=== PATIENT | male | born 1945 | race Native Hawaiian/Other Pacific Islander ===

== ENCOUNTER 2019-07-27 13:53 | Inpatient (IN) | payer OTHER ==
[~2019-07-27] VITALS: Ht 180.3 cm; Wt 96.4 kg
[~2019-07-27 13:53] MED LIST: ACTOS45 MG PO; AMLO5TAB PO; BENA20TA2 PO; GLIM4TAB PO; METFORMIN ER1000 MG PO; PROZAC10 MG PO; RANI150T78 PO; ROSU10TA PO; TGT ENTERIC-CO325 MG OR
[2019-07-27 14:01] VITALS: BP 142/69; TEMP 97.7
[2019-07-27 14:44] LABS: PLATELET COUNT 148 K/uL (142-355)
[2019-07-27 20:00] VITALS: BP 153/61; TEMP 97.9
[2019-07-27 20:18] VITALS: BP 164/65; TEMP 97.6; Ht 180.3 cm; Wt 96.4 kg
[2019-07-28] VITALS: BP 130/62; TEMP 99.2
[2019-07-28 04:00] VITALS: BP 129/55; TEMP 98.3
[2019-07-28 08:00] VITALS: BP 128/52; TEMP 98.1
[2019-07-28 12:00] VITALS: BP 135/50; TEMP 99
[2019-07-28 16:00] VITALS: BP 142/52; TEMP 98.3
[2019-07-28] MEDS ORDERED: ACTOS45 MG PO (18:31)
[2019-07-28] MEDS ORDERED: GLIM4TAB PO (18:32)
[2019-07-28] MEDS ORDERED: LIPITOR20 MG PO (18:32)
[2019-07-28] MEDS ORDERED: COZAAR100 MG PO (18:33)
[2019-07-28] MEDS ORDERED: TEMA30CA18 PO (18:33)
[2019-07-28 20:00] VITALS: BP 95/53; TEMP 98.9
[2019-07-29] VITALS (7 sets, daily range): BP systolic 123–135; BP diastolic 47–54; TEMP 97.6–99.2
[2019-07-30 04:00] VITALS: BP 132/53; TEMP 98.9
[2019-07-30 08:00] VITALS: BP 135/56; TEMP 97.8
[2019-07-30 12:00] VITALS: BP 130/60; TEMP 97.2
[2019-07-30 16:00] VITALS: BP 133/55; TEMP 97.5
[2019-07-30 20:00] VITALS: BP 138/66; TEMP 97.7
[2019-07-31] VITALS: BP 139/54; TEMP 98.6
[2019-07-31 04:00] VITALS: BP 134/53; TEMP 97.9
[2019-07-31 08:00] VITALS: BP 150/58; TEMP 97.6
[2019-07-31 12:00] VITALS: BP 139/56; TEMP 98.1
[2019-07-31 16:00] VITALS: BP 142/55; TEMP 97.6
[2019-07-31 20:00] VITALS: BP 116/59; TEMP 97.7
[2019-08-01 00:23] VITALS: BP 138/56; TEMP 98.1
[2019-08-01 04:00] VITALS: BP 133/51; TEMP 98.1
[2019-08-01 08:00] VITALS: BP 139/61; TEMP 98
[2019-08-01 12:00] VITALS: BP 137/62; TEMP 97.6
[2019-08-01 16:00] VITALS: BP 139/56; TEMP 98.5
[2019-08-01 20:00] VITALS: BP 142/67; TEMP 98.1
[2019-08-02] VITALS: BP 130/43; TEMP 98.4
[2019-08-02 04:00] VITALS: BP 138/49; TEMP 98
[2019-08-02 08:00] VITALS: BP 144/54; TEMP 97.8
[2019-08-02 12:00] VITALS: BP 125/54; TEMP 98
[2019-08-02 16:00] VITALS: BP 142/60; TEMP 97.7
[2019-08-02 20:00] VITALS: BP 150/56; TEMP 98.1
[2019-08-03] VITALS (7 sets, daily range): BP systolic 130–165; BP diastolic 51–96; TEMP 97.2–98.3
[2019-08-04 04:00] VITALS: BP 139/59; TEMP 97.8
[2019-08-04 12:00] VITALS: BP 142/60; TEMP 97.9
[2019-08-04 16:00] VITALS: BP 151/56; TEMP 99
[2019-08-04 20:00] VITALS: BP 149/56; TEMP 98.5
[2019-08-05 00:26] VITALS: BP 152/56; TEMP 99
[2019-08-05 03:59] VITALS: BP 137/57; TEMP 98.4
[2019-08-05 08:00] VITALS: BP 157/62; TEMP 98.6
[2019-08-05 12:00] VITALS: BP 150/67; TEMP 97.5
[2019-08-05 16:00] VITALS: BP 151/57; TEMP 97.4
[2019-08-05 20:00] VITALS: BP 141/62; TEMP 98
[2019-08-06] VITALS: BP 147/54; TEMP 98.1
[2019-08-06 04:00] VITALS: BP 155/60; TEMP 98.4
[2019-08-06 08:00] VITALS: BP 141/50; TEMP 97.6
[2019-08-06 12:00] VITALS: BP 143/70; TEMP 97.4
== END 2019-08-06 16:20 | disposition short-term general hospital (02) | DRG 563 ==
LOC: ED 13:53 → MED/SURG 17:30 → ED 17:30 → MED/SURG 17:30 → EDBD 08-06 16:20 → MED/SURG 08-06 16:20
PROVIDERS: ADMIT Family Medicine
DX: S92.312A Displaced fracture of first metatarsal bone, left foot, initial encounter for closed fracture (principal); I69.351 Hemiplegia and hemiparesis following cerebral infarction affecting right dominant side; S92.322A Displaced fracture of second metatarsal bone, left foot, initial encounter for closed fracture; S92.332A Displaced fracture of third metatarsal bone, left foot, initial encounter for closed fracture; S92.342A Displaced fracture of fourth metatarsal bone, left foot, initial encounter for closed fracture; S92.344A Nondisplaced fracture of fourth metatarsal bone, right foot, initial encounter for closed fracture; S92.351A Displaced fracture of fifth metatarsal bone, right foot, initial encounter for closed fracture; E11.9 Type 2 diabetes mellitus without complications; I10 Essential (primary) hypertension; K21.9 Gastro-esophageal reflux disease without esophagitis; F32.9 Major depressive disorder, single episode, unspecified; W01.0XXA Fall on same level from slipping, tripping and stumbling without subsequent striking against object, initial encounter; Y92.091 Bathroom in other non-institutional residence as the place of occurrence of the external cause
CPT/HCPCS: 36415; 80053; 82948; 83036; 85027; 90715; 96372; 99284; J1650; J2405

== ENCOUNTER 2019-08-06 15:32 | Outpatient (CLI) | payer OTHER ==
[~2019-08-06 15:32] MED LIST changes: +COZAAR100 MG PO; +LIPITOR20 MG PO; +TEMA30CA18 PO
== END 2019-08-06 16:03 | disposition short-term general hospital (02) ==
LOC: AMB 15:32 → EDBD 15:32 → AMB 16:03
DX: S82.62XA Displaced fracture of lateral malleolus of left fibula, initial encounter for closed fracture (principal)
CPT/HCPCS: A0425; A0429

== ENCOUNTER 2019-08-21 13:30 | Inpatient (IN) | payer OTHER ==
[~2019-08-21] VITALS: Ht 175.3 cm; Wt 96.2 kg
[2019-08-21 15:15] VITALS: BP 155/75; TEMP 98.5; Ht 175.3 cm; Wt 96.2 kg
[2019-08-21 16:07] LABS: PLATELET COUNT 217 K/uL (142-355)
[2019-08-21 16:17] LABS: POTASSIUM 4.1 mmol/L (3.6-5.2)
[2019-08-21 20:00] VITALS: BP 123/59; TEMP 98.6
[2019-08-22 08:16] VITALS: BP 130/64; TEMP 98.5
[2019-08-22 20:00] VITALS: BP 134/57; TEMP 98.1
[2019-08-23 08:00] VITALS: BP 97/47; TEMP 97.9
[2019-08-23 20:00] VITALS: BP 105/53; TEMP 98.1
[2019-08-24 08:00] VITALS: BP 124/64; TEMP 98.6
[2019-08-24 20:00] VITALS: BP 131/56; TEMP 98.3
[2019-08-25 08:00] VITALS: BP 101/66; TEMP 98.2
[2019-08-25 20:00] VITALS: BP 132/53; TEMP 97.5
[2019-08-26 08:00] VITALS: BP 142/58; TEMP 98.6
[2019-08-26 20:00] VITALS: BP 121/45; TEMP 98.8
[2019-08-27 08:00] VITALS: BP 130/60; TEMP 98
[2019-08-27 20:00] VITALS: BP 129/59; TEMP 98
[2019-08-28 08:00] VITALS: BP 130/60; TEMP 97.5
[2019-08-28 20:00] VITALS: BP 116/57; TEMP 98.2
[2019-08-29 08:00] VITALS: BP 114/57; TEMP 98.3
[2019-08-29 20:00] VITALS: BP 117/53; TEMP 98.2
[2019-08-30 08:00] VITALS: BP 110/59; TEMP 97.8
[2019-08-30 20:00] VITALS: BP 123/48; TEMP 97.8
[2019-08-31 08:00] VITALS: BP 116/57; TEMP 97.7
[2019-08-31 20:00] VITALS: BP 134/60; TEMP 97.9
[2019-09-01 08:00] VITALS: BP 131/53; TEMP 97.6
[2019-09-01 19:49] VITALS: BP 126/50; TEMP 98.6
[2019-09-02 08:00] VITALS: BP 120/51; TEMP 99.3
[2019-09-02 17:27] VITALS: TEMP 98.8
[2019-09-02 20:26] VITALS: BP 135/49; TEMP 99
[2019-09-03 08:00] VITALS: BP 117/49; TEMP 98.7
[2019-09-03 13:29] LABS: PLATELET COUNT 156 K/uL (142-355)
[2019-09-03 13:42] LABS: POTASSIUM 4.4 mmol/L (3.6-5.2)
[2019-09-03 20:00] VITALS: BP 136/56; TEMP 98
[2019-09-04 06:13] LABS: PLATELET COUNT 150 K/uL (142-355)
[2019-09-04 06:44] LABS: POTASSIUM 4.2 mmol/L (3.6-5.2)
[2019-09-04 08:00] VITALS: BP 121/44; TEMP 98.5
[2019-09-04 20:00] VITALS: BP 116/50; TEMP 98.7
[2019-09-05 05:50] LABS: PLATELET COUNT 145 K/uL (142-355)
[2019-09-05 06:00] LABS: POTASSIUM 4.4 mmol/L (3.6-5.2)
[2019-09-05 08:05] VITALS: BP 115/46; TEMP 98.2
[2019-09-05 20:00] VITALS: BP 131/53; TEMP 98.4
[2019-09-06 08:00] VITALS: BP 125/50; TEMP 97.9
[2019-09-06 20:06] VITALS: BP 114/57; TEMP 98.3
[2019-09-07 08:00] VITALS: BP 115/47; TEMP 98.2
[2019-09-07 20:00] VITALS: BP 98/50; TEMP 97.9
[2019-09-08 08:00] VITALS: BP 120/48; TEMP 97.9
[2019-09-08 20:00] VITALS: BP 112/53; TEMP 98.7
[2019-09-09 08:20] VITALS: BP 115/52; TEMP 97.8
[2019-09-09 20:00] VITALS: BP 117/51; TEMP 97.9
[2019-09-10 08:00] VITALS: BP 130/57; TEMP 98.1
== END 2019-09-10 13:37 | disposition home or self-care (01) | DRG 948 ==
LOC: MED/SURG 13:30
PROVIDERS: Internal Medicine; ADMIT Internal Medicine
DX: R53.1 Weakness (principal); I69.351 Hemiplegia and hemiparesis following cerebral infarction affecting right dominant side; Z47.89 Encounter for other orthopedic aftercare; E11.9 Type 2 diabetes mellitus without complications; I10 Essential (primary) hypertension; K21.9 Gastro-esophageal reflux disease without esophagitis; E78.49 Other hyperlipidemia; F32.89 Other specified depressive episodes; R62.7 Adult failure to thrive; J20.9 Acute bronchitis, unspecified; S91.301A Unspecified open wound, right foot, initial encounter; X58.XXXA Exposure to other specified factors, initial encounter; Y92.230 Patient room in hospital as the place of occurrence of the external cause
CPT/HCPCS: 36415; 80053; 81000; 85027; 87077; 87081; 87086; 87088; 87186; 87502

== ENCOUNTER 2020-02-21 11:12 | Outpatient (CLI) | payer OTHER ==
[2020-02-21 11:40] LABS: PLATELET COUNT 136 K/uL (142-355)
[2020-02-21 12:03] LABS: POTASSIUM 3.8 mmol/L (3.6-5.2)
== END 2020-02-21 19:08 | disposition home or self-care (01) ==
LOC: LAB 11:12
PROVIDERS: Nurse Practitioner Family
DX: Z00.00 Encounter for general adult medical examination without abnormal findings (principal); E11.65 Type 2 diabetes mellitus with hyperglycemia; I10 Essential (primary) hypertension; G47.09 Other insomnia
CPT/HCPCS: 80053; 80061; 83036; 84439; 84443; 85027

== ENCOUNTER 2020-11-10 12:21 | Emergency (ER) | payer OTHER ==
[~2020-11-10] VITALS: Ht 180.3 cm; Wt 96.2 kg
[2020-11-10 12:21] VITALS: TEMP 98.3
[2020-11-10 13:30] LABS: POTASSIUM 3.3 mmol/L (3.6-5.2)
[2020-11-10 13:36] LABS: PLATELET COUNT 155 K/uL (142-355)
[2020-11-10 16:58] VITALS: BP 159/59
== END 2020-11-10 16:58 | disposition short-term general hospital (02) ==
LOC: ED 12:21
PROVIDERS: Emergency Medicine Emergency Medical Services
DX: E11.649 Type 2 diabetes mellitus with hypoglycemia without coma (principal); Z79.84 Long term (current) use of oral hypoglycemic drugs; R53.1 Weakness
CPT/HCPCS: 80053; 81000; 82550; 82948; 85027; 86140; 87077; 87086; 87088; 87186; 96365; 96375; 99284; J0696; J7060; Q9963

== ENCOUNTER 2020-12-04 14:20 | Outpatient (CLI) | payer OTHER ==
[2020-12-04 14:50] LABS: PLATELET COUNT 121 K/uL (142-355)
[2020-12-04 14:55] LABS: POTASSIUM 3.6 mmol/L (3.6-5.2)
== END 2020-12-04 19:36 | disposition home or self-care (01) ==
LOC: LAB 14:20
PROVIDERS: ATTEND Internal Medicine
DX: R30.0 Dysuria (principal); R42 Dizziness and giddiness; N39.0 Urinary tract infection, site not specified; E16.2 Hypoglycemia, unspecified
CPT/HCPCS: 80053; 81000; 85027

== ENCOUNTER 2020-12-17 13:31 | Inpatient (IN) | payer OTHER ==
[~2020-12-17] VITALS: Ht 180.3 cm; Wt 98.1 kg
--- NOTE | 2020-12-17 15:00 | NUR ---
PT NOTED TO HAVE EMOBILZER BRACE TO RT LOWER LEG FROM THIGH TO ANKLE, SURGICAL DRESSING NOTED TO LOWER THIGH DRY AND INTACT AT THIS TIME
[2020-12-17 17:12] VITALS: BP 144/60; TEMP 97.9; Ht 180.3 cm; Wt 98.1 kg
[2020-12-17 20:00] VITALS: BP 133/54; TEMP 98.2
--- NOTE | 2020-12-17 20:30 | NUR ---
ENTERED PATIENT'S ROOM. PATIENT RESTING QUIETLY IN BED WITH EYES CLOSED. LYING IN LOW BUENROSTRO'S WITH NECK BENT TOWARD LEFT SHOULDER. I ASKED PATIENT IF HE WAS UNCOMFORTABLE AND IF HE WOULD LIKE TO BE ADJUSTED. HE STATES THAT HE IS FINE. HE DENIES ANY PAIN AT THIS TIME, BUT HE DID AGREE TO TAKE SOMETHING FOR PAIN. WHILE GIVING MEDICATIONS, PATIENT STATES THAT HE USUALLY TAKES ALL OF HIS MEDICATIONS AT ONE TIME. PATIENT DID HAVE DIFFICULTY DOING THIS. HE WAS COUGHING AND IT WAS NOTED THAT HE STILL HAD PILLS IN HIS MOUTH AFTER STATING HE WAS FINISHED. I DISCUSSED WITH HIM THE IMPORTANCE OF SWALLOWING ALL PILLS D/T HIGH RISK OF CHOKING. HE DID AGREE TO SWALLOW THE REMAINING PILLS. HOB IN LOW BUENROSTRO'S POSITION. DENIES ANY OTHER CONCERNS OR COMPLAINTS. BED LOCKED AND IN LOWEST POSITION. CALL LIGHT WITHIN EASY REACH.
--- NOTE | 2020-12-18 01:30 | NUR ---
PATIENT TURNED IN BED AT THIS TIME. EXTENSIVE ASSIST X3 REQUIRED. PATIENT DID HAVE AN INCONTINENT EPISODE AND LINENS WERE ALSO CHANGED. PERCOCET GIVEN FOR PAIN ALSO. NC INTACT @ 2L/MIN. RESPIRATIONS EVEN AND UNLABORED. NAD NOTED. PATIENT STATES HE IS MORE COMFORTABLE NOW. PATIENT CONFUSED ABOUT SURROUNDINGS. REORIENTED PATIENT. BED LOCKED AND IN LOWEST POSITION. CALL LIGHT WITHIN EASY REACH.
--- NOTE | 2020-12-18 06:05 | NUR ---
PATIENT RESTING QUIETLY IN BED. RESPIRATIONS EVEN AND UNLABORED. NC INTACT @ 2L/MIN. NAD NOTED. BED LOCKED AND IN LOWEST POSITION. CALL LIGHT WITHIN REACH.
--- NOTE | 2020-12-18 06:22 | NUR ---
Patient is in the Swing Bed Program and is on a 2 Gm Na Diet plan and is 5'11" at 233.4 lbs. and BMI at 32.5 and is Class I Obesity and is 136% pf IBW; IBW = 172+/-10% (155 to 189 lbs.) and kcal needs for IBW x 25 = 2000, x 30 = 2300, x 35 = 2700, x 40 = 3100 kcal/day, protein needs x 1.3 to 1.5 = 102 to 117 grams per day and fluids for IBW x 25 to 40 = 2000 to 3100 ml/cc per day. Patient was admitted with Orthopedic Aftercare and is a &&YOM, Right Distal femur fracture, right sided hemiparesis, and has a history of DM, HTN, GERD, CVA, Depression, and has a right ankle fracture, Hyperlipidemia and is eating 75% of meals and gl elevated at 208. RD Recommendations: 1-Monitor Labs 2-PT to work with the patient 3-OT to work with the patinet 4-Suggest to add NCS HIGH FIBER and encourage patient to follow the diet and may want to add Low Fat Low Cholesterol d/t dx. and if the patient won't follow 5-A Dietary Refusal Form needs to be signed 6-Add Vitamin C 500 mg BID 7-Add ZNSO4 220 mg per day and d/c in 14 days 8-Add Protein 30 ml/cc or 1 scoop QID 9-[place] all food preferences and state on the diet card and offere substitutes at all meals.
[2020-12-18 08:00] VITALS: BP 97/55; TEMP 97.8
--- NOTE | 2020-12-18 08:45 | NUR ---
REPORTED TO DR. TALAVERA PT'S CONCERNS OF WHEN HE SWALLOWS FOODS OR LIQUIDS HE STATES IT SCHWAB IN HIS THROAT AND HE HAS TO COUGH OR BELCH IN ORDER FOR THE BURN TO GO AWAY, DR. TALAVERA STATES HE WILL GO SEE THE PT AND THAT IT IS OK FOR THE PT TO TAKE HIS AM MEDICATIONS, NO ORDERS GIVEN AT THIS TIME
--- NOTE | 2020-12-18 09:01 | NUR ---
DURING MORNING MED PASS PT WAS ADVISED TO SWALLOW ONE PILL AT A TIME TO PREVENT CHOKING. PT STATED "WHY CHANGE A 25 YEAR HABIT" AND SWALLOWED ALL THE PILLS AT ONCE. CABLE SPLICING TECHNICIAN REINFORCED EDUCATION THAT SWALLOWING ALL THE PILLS AT ONCE IS NOT ADVISED DUE TO CHOKING HAZARD.
[2020-12-18 19:52] VITALS: BP 140/53; TEMP 98
[2020-12-19 08:00] VITALS: BP 145/56; TEMP 98.5
--- NOTE | 2020-12-19 09:03 | NUR ---
12/19/20 0815 RESTING IN BED EYES CLOSED RESP EVEN NONLABORED NAD NOTED.CC
--- NOTE | 2020-12-19 10:00 | NUR ---
PATIENT REFUSED THERAPY. PATIENT STATED TO PARVEZ WHITE THAT HE HAS A COLD AND DOES NOT WANT TO GET UP.
--- NOTE | 2020-12-19 10:30 | NUR ---
DR. TALAVERA NOTIFIED OF PATIENT REFUSAL OF THERAPY AND REQUEST FOR COLD MEDICATION.
--- NOTE | 2020-12-19 10:52 | NUR ---
PATIENT NOTIFIED PARVEZ WHITE THAT HE HAS NOT HAD A BOWEL MOVEMENT SINCE TUESDAY (1 WEEK AGO). HE REQUESTED SOME OTHER MEDICATION FOR THIS. DR. TALAVERA TO BE NOTIFIED.
--- NOTE | 2020-12-19 11:15 | NUR ---
INTERDISCIPLINARY SWING BED MEETING. DISCUSSED PT FEELING LIKE HE HAS A COLD AND NOT HAVING A BOWEL MOVEMENT IN ONE WEEK. DR. TALAVERA ASSESSED PATIENT. NEW ORDERS TO COME. THERAPY TO RETURN TO WORK WITH PATIENT.
--- NOTE | 2020-12-19 15:30 | NUR ---
PATIENT RECEIVED A BATH FROM [facility]. PATIENT TOLERATED WELL. PATIENT STATED HE ONLY HAD MINIMAL DISCOMFORT WITH TURNING.
--- NOTE | 2020-12-19 18:33 | NUR ---
SPOKE WITH DR. TALAVERA ABOUT PATIENT'S INDIGESTION. DR. TALAVERA GAVE VERBAL ORDER FOR MAALOX Q6H PRN FOR INDIGESTION. ORDER RBV.
[2020-12-19 19:52] VITALS: BP 148/52; TEMP 99.5
--- NOTE | 2020-12-19 22:56 | NUR ---
PATIENT HAS BE READJUSTED IN THE BED THE PATIENT IS ABLE TO ROLL TO HIS RIGHT SIDE WITH MINIMAL ASSISTANCE BUT EXTENSIVE TO HIS LEFT. THE PATIENT IS A TWO PERSON EXTENSIVE ASSIST TO PULL UP IN THE BED. PATIENT IS SET UP ONLY OFR MEDICATIONS ADMINSISTRATION AND EATING.
--- NOTE | 2020-12-20 00:43 | NUR ---
PATIENT HAS A SMALL RED BLANCHABLE ON HIS SPOT ON HIS RT BUTTOCK. THE PATIENT STATES, " THATS BEEN THERE [facility]." IT WAS BLANCHABLE AND NON PAINFUL. THE PATIENTS BILATERAL FEET AND ANKLES HAVE 3+ PITTINGEDEMA. THE FOOT OF THE BED WAS RAISED. THE RIGHT FOOT IS SLIGHTLY MORE EDEMIOUS. BILATERAL PETAL PULSES INTACT
--- NOTE | 2020-12-20 08:11 | NUR ---
IDT meeting today and per patient is not eating d/t no appetite and has a sore throast and ST/Janice is going to evaluet and help as needed. Stated he doesn't feel good. Ms. Felipe led the meeting. RD Recommendations: 1-Make sure on a MVI 2-Appetite Stimulant 3-GIve a supplement with or between meals and at HS as will take until eating 75% of meals and then can d/c
--- NOTE | 2020-12-20 19:40 | NUR ---
PT SITTING UP IN BED WITH SIDE RAILS UP TIMES THREE WITH BED IN LOWEST POSITION. NAD NOTED.
[2020-12-20 20:06] VITALS: BP 138/52; TEMP 99.3
--- NOTE | 2020-12-21 05:50 | NUR ---
STOOL NOTED AT END OF RECTUM. PT COMPLAINED OF PAIN. DIGITALLY IMPACTED PT AT THIS TIME. NOTED HARD LARGE BALL LIKE STOOL. PT FELT IMMEDIATE RELIEF AFTER INTERVENTION.
[2020-12-21 08:00] VITALS: BP 147/56; TEMP 98.2
--- NOTE | 2020-12-21 08:40 | NUR ---
PATIENT RESTING IN BED WITH 2 SIDE RAILS UP. PATIENT HAS SOME INDIGESTION AT THIS TIME. PATIENT DOES NOT WANT PRN MAALOX.
--- NOTE | 2020-12-21 18:07 | NUR ---
PATIENT CALLED NURSES STATIONS AND ASKED TO SEE HIS NURSE. FILLING STATION LABORER ENTERED ROOM AND PATIENT APPEARED TO BE SLEEPING. WHEN PATIENT NAME WAS CALLED HE AROUSED AND STARTED SAYING HIS CHEST WAS ON FIRE. PRN MAALOX GIVEN PER MD ORDERS. PATIENT REQUESTED PAIN MEDICATION FOR LEG. PROVIDED PRN PERCOCET PER MD ORDERS. PATIENT DRIFTED OFF TO SLEEP BEFORE FILLING STATION LABORER LEFT THE ROOM. WILL CONTINUE TO MONITOR.
--- NOTE | 2020-12-21 19:30 | NUR ---
PT'S BLOOD SUGAR LEVEL OF 50MG/DL. ORANGE JUICE GIVEN TO PT AT THIS TIME.
[2020-12-21 19:50] VITALS: BP 132/54; TEMP 98.8
--- NOTE | 2020-12-21 20:57 | NUR ---
PM MEDS GIVEN AT THIS TIME. PT TOLERATED WELL. PT IN A HIGH-FOWLERS POSITION WITH SIDE RAILS UP TIMES TWO WITH BRACE IMMOBILIZER ON LOWER RIGHT EXTERMITY. NO NAD NOTED AT THIS TIME.
--- NOTE | 2020-12-22 07:15 | NUR ---
NEFTALY PCT REPORTS PT'S BLOOD SUGAR VIA FINGER STICK TO BE 29. NEFTALY PCT REPORTS PT IS ALERT AND TALKING. 2 ORANGE JUICES GIVEN WILL RECHECK BS IN 1 HOUR. WILL CON'T TO MONITOR PT.
--- NOTE | 2020-12-22 07:35 | NUR ---
REC'D REPORT FROM KIERAN AGUERO LPN. IN TO CHECK ON PT. PT NOTED TO BE LAYING IN BED IN HIGH FOWLERS WITH COVERS PULLED UP TO HIS HEAD. PT NOTED TO BE LETHARGIC, PT VERBALIZES "I JUST DON'T FEEL GOOD" PT INFORMED HIS BLOOD SUGAR IS LOW AND THAT COULD BE THE REASON HE ISN'T FEELING WELL. PT DENIES ANY NAUSE.
[2020-12-22 08:00] VITALS: BP 152/52; TEMP 97.6
--- NOTE | 2020-12-22 08:00 | NUR ---
PT BS NOTED TO BE 75 VIA FINGER STICK AT THIS TIME. DR. TALAVERA NOTIFIED. REC'D ORDERS TO D/C PT'S AMARYL AND ACTOS AT THIS TIME. NEFTALY PCT REPORTS PT IS CURRENTLY REFUSING BREAKFAST AT THIS TIME. PT GIVEN CHOCOLATE ENSURE AND REMINDED THAT HIS BLOOD SUGAR IS LOW AND HE NEEDS TO EAT OR AT LEAST DRINK AN ENSURE TO HELP BRING HIS BS BACK UP. PT CONSUMED ONE WHOLE CAN 240 ML CHOCOLATE ENSURE WITH ENCOURAGEMENT. WILL CON'T TO MONITORO PT.
--- NOTE | 2020-12-22 08:45 | NUR ---
PT AM ASSESSMENT COMPLETED AT THIS TIME. PT NOTED TO BE ALERT AND ORIENTED X3. PT STATES "WHAT IS TODAY" PT REORIENTED AND INFORMED TODAY IS TUESDAY DECEMBER 22, 2020. PT HR REGULAR ON AUSCULTATION, BILAT LUNG SOUNDS CLEAR THROUGH OUT. 3+ PITTING NOTED TO RLE. TRACE AMOUNT OF SWELLING NOTED TO LLE. PEDAL PULSES FELT BILAT EQUAL. CAP REFILL <3 SECONDS. RADIAL PULSES EQUAL BILAT. PT NOTED TO HAVE WEKANESS TO LEFT UPPER EXTREMITY D/T PREVIOUS HX OF CVA. ABD SOUNDS PRESENT X4 QUADRANTS. WILL CON'T TO MONITOR PT.
--- NOTE | 2020-12-22 09:04 | NUR ---
PT NOTED TO BE ALERT AND ORIENTED AT THIS TIME. PO MEDS GIVEN.PT TOLERATED WELL WITHOUT DIFFICULTY. PT STATES "I JUST WANT TO GO HOME" PT REMINDED THAT HE IS HERE FOR THERAPY AND FOR US TO HELP HIM GET BACK HOME. PT STAT ES "I KNOW"
--- NOTE | 2020-12-22 11:27 | NUR ---
PT AT BEDSIDE. PT'S BS NOTED TO BE 126 VIA FINGER STICK. PT REPORTS THAT HE WAS CONFUSED THIS MORNING AND WHEN HE WOKE UP HE DIDN'T KNOW WHERE HE WAS AT. PT GIVEN NEW URINAL. VERIFIED WITH PT IF THERAPY WAS GETTING HIM UP. PT STATES "ON THE SIDE OF THE BED, BECAUSE THAT LEG JUST HURTS" PT'S ASKS "IS THERE ANY WAY THEY CAN X-RAY HIM AND TELL WHY HE IS HAVING THAT CHEST PAIN" ASKED PT IS HE WAS HAVING CHEST PAIN, PT STATES "YEAH, IT SCHWAB HERE, POINTING TO MID STERNUM, AND I FEEL LIKE MY FOOD IS JUST SITTING THERE THAT IS WHY I CAN'T EAT" EDUCATED PT THAT HE NEEDS TO BE SITTING UP RIGHT WHETHER IT BE IN THE BED OR IN A CHAIR OR ON THE SIDE OF THE BED, BUT THAT HE NEEDS TO BE IN AN UPRIGHT POSITION SO THAT HIS FOOD CAN GO DOWN EASILY. PT VERBALIZED UNDERSTANDING. NOTIFIED DR. TALAVERA WHO VERIFIES THE MAGIC MOUTH WASH AND MAALOX IS FOR THE BURNING IN THE CHEST, AND THAT YES HE DOES NEED TO BE SITTING UP RIGHT. WILL CON'T TO MONITOR PT.
--- NOTE | 2020-12-22 12:02 | NUR ---
PT ASSISSTED TO BEDSIDE VIA LIDIA BUTLER AND JIM GOLD MAX ASSISTANCE. PT TOLERATED WELL WITH MINIMAL DIFFICULTY. PT GIVEN PERCOCET 5/325 PO PER MD ORDERS FOR PREVENITIVE PAIN. PT REPORTS FEELING DIZZY AFTER SITTING UP. PT VERBALIZED SOME DIFFICULTY WITH SWALLOWING PAIN PILL. NO DISTRESS NOTED. PT NOTED TO HAVE LARGE SOFT BOWEL MOVEMENT AT THIS TIME, PT CLEANED AND CHANGED X3 PERSON ASSIST.
[2020-12-22 20:00] VITALS: BP 157/56; TEMP 98.5
--- NOTE | 2020-12-22 20:00 | NUR ---
PATIENT RESTING QUIETLY IN BED. NC INTACT @ 2L/MIN. RESPIRATIONS EVEN AND UNLABORED. NAD NOTED. PATIENT DOES REPORT PAIN TO RLE. IMMOBILIZER BRACE AND AQUACEL INTACT. PATIENT MOVED UP IN THE BED WITH ASSIST X 3. PATIENT REQUESTING THAT PILLOWS BE REMOVED FROM UNDERNEATH RLE. PRN PAIN MEDICATION GIVEN WITH PM MEDS. BED LOCKED AND IN LOWEST POSITION. CALL LIGHT WITHIN EASY REACH.
--- NOTE | 2020-12-22 23:00 | NUR ---
PATIENT RESTING QUIETLY IN BED WITH EYES CLOSED. RESPIRATIONS EVEN AND UNLABORED. NAD NOTED. CALL LIGHT WITHIN REACH.
[2020-12-23 08:00] VITALS: BP 151/56; TEMP 97.6
--- NOTE | 2020-12-23 11:26 | NUR ---
PT ASSISTED BACK TO BED VIA GAIT BELT AND 2 PERSON EXTENSIVE ASSIST. PER [address] NATHALIE PT DID ASSIST WITH PLACING WEIGHT ON HIS LEFT LEG FOR SUPPORT. PT TOLERATED WELL WITHOUT DIFFICULTY. PT ASSISTED WITH LAYING DOWN IN BED X1 PERSON ASSIST WITH LIFTING HIS LEGS UP ON THE BED. PT THEN PULLED UP IN BED X2-3 PERSON ASSIST. PT TOLERATED WELL WITHOUT DIFFICULTY. PT REFUSES TO HAVE PILLOW PLACED UNDER HIS LEGS TO FLOAT HEELS. WILL CON'T TO MONITOR PT. CALL LIGHT WITHIN REACH. BED LOW AND LOCK. PT AT BEDSIDE.
[2020-12-23 20:00] VITALS: BP 134/53; TEMP 98
--- NOTE | 2020-12-23 21:10 | NUR ---
UPON ENTERING PATIENTS ROOM, PATIENT WAS IN SEMI FOWLERS POSITION WATCHING TV. PATIENT IS A&O X4, AND IS PLEASANT, CHEERFUL AND CONVERSING WITH STAFF. PATIETN REORIENTED TO ROOM. PATIENT C/O OF PAIN TO RLE, IMMOBILIZER AND AQUACEL NOTED TO BE INTACT. PROVIDED PAIN MEDICATION PER PHYSICIAN ORDERS. REDDENED AREA NOTED TO RIGHT INNER THIGH WHERE IMMOBILIZER BEGINS WITH NO BREAKDOWN TO SKIN NOTED AT THIS TIME, TELFA PAD APPLIED TO AREA AND SECURED WITH MICROPORE TAPE. PATIENT TOLERATED WELL. PROVIDED PATIENT WITH PM MEDICATIONS, PT TOOK ALL MEDICATIONS WHOLE WITHOUT DIFFICULTY. PATIENT'S BEDSIDE TABLE WITH BELONGINGS AND CALL LIGHT WITHIN REACH. PATIENT INSTRUCTED TO CALL FOR ANY ASSISTANCE OR NEEDS, PT V/O UNDERSTANDING. NO S/SX OF DISTRESS NOTED AT THIS TIME. PATIENT STATES PAIN TO RLE IS A 6/10 NUMERIC PAIN SCALE. WILL MONITOR FOR THERAPEUTIC TREATMENT.
--- NOTE | 2020-12-23 23:25 | NUR ---
PATIENT REPORTS HE HAD A BOWEL MOVEMENT. PATIENT WAS ABLE TO ROLL ONTO HIS RIGHT SIDE WITH MODERATE ASSISTANCE TONIGHT BY STAFF MEMBER PATIENT HELD ONTO RIGHT BEDSIDE RAIL. PATIENT CLEANED OF MODERATE AMOUNT OF FORMED DARK STOOL NOTED IN DEPENDS, CALAZIME CREAM APPLIED TO SACRUM, CLEAN DEPENDS PLACED ON PATIENT AND CLEAN CHUX X2 PLACED BENEATH PATIENT. PATIENT ABLE TO TURN ONTO LEFT SIDE WITH MAX ASSISTANCE BY STAFF. PATIENT REPOSITIONED UP IN BED WITH TWO PERSON ASSIST. PATIENT DENIES ANY PAIN, NEEDS OR C/O AT THIS TIME. BEDSIDE TABLE WITH PERSONAL BELONGINGS WITHIN REACH. CALL LIGHT WITHIN REACH, PT INSTRUCTED TO CALL FOR ANY ASSISTANCE OR NEEDS. PT V/O UNDERSTANDING. NAD NOTED AT THIS TIME.
--- NOTE | 2020-12-24 11:00 | NUR ---
PT AT BEDSIDE.
--- NOTE | 2020-12-24 12:00 | NUR ---
PT AT BEDSIDE. PATIENT TRANSFERRED BACK TO BED.
[2020-12-24 19:44] VITALS: BP 140/52; TEMP 98.7
--- NOTE | 2020-12-24 22:29 | NUR ---
MELANIE IS MORE ALERT AND IS ABLE TO REMEBER WRITERS NAME. PATIENT IS ABLE TO USE URINAL AND MOVE IN BED WITH LIMMITED ASSISTANCE. PATIENT IS ABLE TO ADMINISTER MEDICATIONS AND EAT WITH SETUP HELP ONLY
--- NOTE | 2020-12-24 22:53 | NUR ---
PATIENT IS A SET ONLY ASSIST WHEN HE USES THE URINAL BUT A 2PERSON PHYSICAL EXTENSIVE ASSIST WHEN HE HAS A BM
--- NOTE | 2020-12-25 04:05 | NUR ---
PATIENT IS RESTING QUIETLY. BREATHS ARE EASY NON LABORED. SIDERALES UP X2.
--- NOTE | 2020-12-25 05:04 | NUR ---
LATE ENTRY: AT 2100 PATIENT STATED, "PT WORKED ME GOOD." AND REQUESTED A PAIN PILL. PATIENT WAS MEDICATED AND LATER REPORTED RELIEF AND DENIED ANY PAIN
--- NOTE | 2020-12-25 05:06 | NUR ---
PATIENT IS A SSET UP ONLY SELDF WHEN USING A UR BUT WHEN CHANGINF THE PATIENT OF A BM THE PATIENT IS A 2 PERSONEXTENSIVE ASSIST
[2020-12-25 08:00] VITALS: BP 132/52; TEMP 98.3
--- NOTE | 2020-12-25 12:15 | NUR ---
PATIENT'S IN THERAPY CHAIR AND DENIES ANY PAIN, NEEDS OR C/O AT THIS TIME. IS AT BEDSIDE. CALL LIGHT AND BEDSIDE TABLE WITH PERSONAL BELONGINGS WITHIN REACH. NO S/SX OF DISTRESS NOTED.
[2020-12-25 20:00] VITALS: BP 145/56; TEMP 98.6
--- NOTE | 2020-12-25 20:15 | NUR ---
PT IS ABLE TO USE URINAL AND MOVE AROUND IN THE BED WITH SET UP LIMITED ASSISTANCE ONLY. PT. IS MORE RESPONIVE AND REACTIVE TO VERBAL STIMULI. PT PUT OUT 320 ML OF URINE IN THE URINAL.
[2020-12-26 08:00] VITALS: BP 153/57; TEMP 98.9
--- NOTE | 2020-12-26 09:15 | NUR ---
AM MEDICATIONS ADMINISTERED TO PATIENT WHOLE WITHOUT DIFFICULTY. PATIENT IN SEMI FOWLERS POSITION. PT REPORTED HE SLEPT WELL DURING THE NIGHT. PATIENT HAS NO C/O OR REQUEST AT THIS TIME. PATIENT ENCOURAGED TO CALL FOR ANY ASSISTANCE OR NEEDS, PT V/O UNDERSTANDING. CALL LIGHT AND BEDSIDE TABLE WITH PERSONAL BELONGINGS WITHIN REACH. PATIENT CONTINUES TO RECEIVE OXYGEN VIA NC @ 2LPM. PATIENT IS ABLE TO USE THE URINAL AT BEDSIDE WITHOUT ASSISTANCE FROM STAFF BUT REQUIRES MAXIMUM ASSISTANCE FROM STAFF FOR BOWEL MOVEMENTS. PATIENT DENIES ANY PAIN, NEEDS OR C/O.
--- NOTE | 2020-12-26 09:35 | NUR ---
PATIENT HAD A BOWEL MOVEMENT. STAFF CLEANED AND CHANGED PATIENT'S DEPEND, BED LINENS AND CHUX. PATIENT WAS A MAX ASSIST X3 STAFF MEMBERS.
--- NOTE | 2020-12-26 10:00 | NUR ---
PATIENT C/O OF PAIN TO RLE, ADMINISTERED PERCOCET X1 TAB PER PHYSICIAN ORDERS. PATIENT V/O PAIN IS A 5/10 ON NUMERIC PAIN SCALE. PATIENT DENIES ANY OTHER NEEDS OR C/O AT THIS TIME.
--- NOTE | 2020-12-26 10:55 | NUR ---
PATIENT RESTING QUIETLY IN BED WITH EYES CLOSED, NO S/SX OF DISTRESS NOTED WITH PATIENT AT THIS TIME. IS AT BEDSIDE AND INSTRUCTED HER TO NOTIFY STAFF OF ANY NEEDS, V/O UNDERSTANDING.
--- NOTE | 2020-12-26 13:55 | NUR ---
PATIENT SITTING UP ON SIDE OF BED WITH THERAPY AT BEDSIDE. NAD NOTED WITH PATIENT AT THIS TIME.
--- NOTE | 2020-12-26 15:20 | NUR ---
PATIENT RESTING QUIETLY IN BED WITH EYES CLOSED IN SEMI FOWLERS POSITION. NAD NOTED WITH PATIENT AT THIS TIME.
--- NOTE | 2020-12-26 16:34 | NUR ---
During weekly IDT meeting with resident and his today, patient verbalized that he would not go all the way to [place], [place] for orthopedic surgery follow-up as scheduled with Dr. Fournier 12/31/20 at 1 PM. Called [facility] at to ask if there is a closer alternative that is closer for patient. Advised that there is a possibility that he can be seen by either Dr. Ervin or Dr. Deutsch in [place] as Dr. Fournier was providing coverage for their orthopedic office when Mr. Pratt required surgery. Their office is already closed today (Tuesday), but the phone number to call for appointment is . Did not cancel the appointment with Dr. Fournier yet in case Mr. Pratt changed his mind if this alternative was unsuccessful. to call for appointment is .
--- NOTE | 2020-12-26 19:40 | NUR ---
AWAKE LAYING IN BED WITH HOB ELEVATED, DENIES ANY PAIN OR PROBLEMS AT THIS TIME, PT TALKING WITH INCIDENT ANALYST SOME, RESP RATE NONLABORED, DRESSING INTACT TO R LEG. OPENED SUGAR FREE COOKIE PACKAGE PER PT'S REQUEST SO HE CAN EAT A SNACK. PLACED COOKIE ON [place] ON BEDSIDE TABLE SET UP HELP ONLY AND PT ATE COOKIE, WILL MONITOR, RAILS UP X3, BED IN LOW POSITION, CALL LIGHT IN REACH, ENCOURAGED TO CALL NEEDED, PT ACKNOWLEDGES UNDERSTANDING.
[2020-12-26 20:00] VITALS: BP 136/56; TEMP 98.7
--- NOTE | 2020-12-26 22:00 | NUR ---
PT AWAKE WITH NO ACUTE DISTRESS NOTED SITTING UP IN BED, DENIES ANY NEEDS, GAVE NIGHTLY MEDICATION BY MOUTH WITH NO PROBLEMS NOTED. ALSO NOTE GAVE PERCOCET 5/325MG PO PRN TO KEEP PT FROM HAVING PAIN WHILE HE SLEEPS PT STATES HE WILL START HURTING BAD AROUND 2300 SO PRN MED GIVEN TO PREVENT PAIN TO R UPPER LEG. PT HELD MEDICATION CUP AND HIS DRINK PER SELF AND TOOK MEDICATIONS. WILL MONITOR CLOSELY, URINAL WITHIN PT'S REACH, CALL LIGHT IN REACH, BED IN LOW POSITION, RAILS UP X3, ENCOURAGED TO CALL NEEDED, PT ACKNOWLEDGES UNDERSTANDING.
--- NOTE | 2020-12-26 23:29 | NUR ---
PT RESTING IN BED WITH EYES CLOSED, NO S/S OF PAIN OR DISTRESS NOTED, RESP RATE NONLABORED, CALL LIGHT IN REACH, WILL MONITOR CLOSELY, RAILS UP X3, BED IN LOW POSITION.
--- NOTE | 2020-12-27 01:30 | NUR ---
CONTINUES TO REST WITH EYES CLOSED, NO S/S OF PAIN OR DISTRESS NOTED, WILL MONITOR, RAILS UP X3, BED IN LOW POSITION, CALL LIGHT IN REACH.
--- NOTE | 2020-12-27 05:05 | NUR ---
RESTING IN BED WITH EYES CLOSED, NO S/S OF PAIN OR DISTRESS NOTED, WILL MONITOR, RAILS UP, BED IN LOW POSITION, CALL LIGHT IN REACH.
--- NOTE | 2020-12-27 08:13 | NUR ---
IN TO ADMINISTER AM MEDS. PT IN LF POSITION. NAD NOTED. PT HAS NO COMPLAINTS OR REQUESTS AT THIS TIME. BED LOW AND LOCKED. CALL LIGHT WITHIN REACH.
--- NOTE | 2020-12-27 09:03 | NUR ---
Pleased with meals and eating better and wants him to stay longer because she can't help him at home. He seemed very upset with her that she can't help him.
--- NOTE | 2020-12-27 10:36 | NUR ---
PCT WALKED IN ON PT WITH LEFT ARM HANGING OFF OF BED. WHILE TRYING TO MOVE PT UP IN BED, IT WAS NOTICED THAT PT HAD A BM. MYSELF, PCT ARIES, AND SHIRLEY HANNON CLEANED PT UP AND CHANGED BEDDING. PT TOLERATED WELL. BED LOW AND LOCKED. SIDE RAILS UP X3. CALL LIGHT IN REACH.
--- NOTE | 2020-12-27 15:45 | NUR ---
PT C/O PAIN AT 7 ON 0-10 PAIN SCALED. REQUESTING PAIN MEDS. SEE MAR.
[2020-12-27 20:00] VITALS: BP 131/53; TEMP 98.4
--- NOTE | 2020-12-27 21:30 | NUR ---
PT FOUND AWAKE AND ORIENTED LAYING IN BED WITH HOB ELEVATED, NO S/S OF ACUTE DISTRESS NOTED. PT TALKATIVE WITH REPLANTER TELLING REPLANTER ABOUT WORKING FOR EMS THEN POLICE OFFICE AND LEATHER SPRAYER. EXTERNAL FIXATOR INTACT TO R LEG WITH SOME SWELLING NOTED TO LOWER LEG. OFFERED TO PLACE PILLOW UNDER LEG AND PT STATES HE IS FINE. GAVE NIGHTLY MEDICATIONS ALONG WITH PERCOCET 5/325MG PO PRN FOR C/O CONSTANT PAIN TO R LEG THAT IS A "6". PT HELD MEDICATION CUP AND HIS DRINK BY HIS SELF REPLANTER JUST BROUGHT MEDS IN CUP HANDED THEM TO PT AND ALSO BROUGHT PT'S DRINK OPENED IT THEN HANDED IT TO PT. PT ALSO HAS 2 SUGAR FREE COOKIES FOR A NIGHT TIME SNACK TO KEEP HIS BLOOD SUGAR FROM GETTING LOW BY MORNING AND ALSO PER PT REQUEST. WILL MONITOR CLOSELY, RAILS UP, BED IN LOW POSITION, CALL LIGHT AND URINAL WITHIN REACH, ENCOURAGED TO CALL NEEDED, PT ACKNOWLEDGES UNDERSTANDING.
--- NOTE | 2020-12-27 23:28 | NUR ---
RESTING IN BED WITH EYES CLOSED AND SNORING NOTED, NO S/S OF PAIN OR DISTRESS NOTED, RAILS UP, BED IN LOW POSITION, CALL LIGHT ANS URINAL WITHIN PT'S REACH.
--- NOTE | 2020-12-28 01:15 | NUR ---
RESTING IN POSITION OF COMFORT IN BED WITH EYES CLOSED AND LIGHT SNORING NOTED, NO S/S OF PAIN OR DISTRESS NOTED, RESP RATE NONLABORED, WILL MONITOR, RAILS UP, BED IN LOW POSITION, CALL LIGHT AND URINAL WITH IN PT'S REACH.
--- NOTE | 2020-12-28 05:47 | NUR ---
RESTING WITH EYES CLOSED, NO S/S OF PAIN OR DISTRESS NOTED.
[2020-12-28 08:00] VITALS: BP 131/53; TEMP 98.3
--- NOTE | 2020-12-28 08:36 | NUR ---
PT IN HF POSITION. NAD NOTED. PT STATES THAT HE IS NOT IN ANY PAIN AT THIS TIME. NO COMPLAINTS OR REQUESTS AT THIS TIME. BED LOW AND LOCKED. SIDE RAILS UP X3. CALL LIGHT WITHIN REACH.
--- NOTE | 2020-12-28 10:51 | NUR ---
PT RESTING WITH EYES CLOSED. NAD NOTED. BED LOW AND LOCKED. SIDE RAILS UP X3. CALL LIGHT WITHIN REACH.
--- NOTE | 2020-12-28 14:47 | NUR ---
CHANGED PT'S BRIEF AND BEDDING. PT C/O PAIN AT A 4 ON THE 0-10 PAIN SCALE. STATES THAT IT'S GOING UP. ADMINISTERED PRN PAIN MEDS, SEE MAR. BED LOW AND LOCKED. SIDE RAILS UP X3. CALL LIGHT WITHIN REACH.
--- NOTE | 2020-12-28 16:01 | NUR ---
IN TO ADMINSTER MEDS. PT TOLERATED WELL. NAD NOTED. PT HAS NO COMPLAINTS OR REQUESTS AT THIS TIME. BED LOW AND LOCKED. SIDE RAILS UP X3. CALL LIGHT WITHIN REACH
--- NOTE | 2020-12-28 17:50 | NUR ---
PT IN HF POSITION WITH TV ON. NAD NOTED. PT HAS NO COMPLAINTS OR REQUESTS AT THIS TIME. BED LOW AND LOCKED. SIDE RAILS UP X3. CALL LIGHT WITHIN REACH.
--- NOTE | 2020-12-28 19:55 | NUR ---
PT AWAKE, ALERT, AND ORIENTED SITTING UP IN BED WATCHING TV, NO S/S OF PAIN OR DISTRESS NOTED, RESP RATE NONLABORED, O2 AT 2LPM VIA NC, SKIN WARM AND DRY, RADIAL PULSES INTACT, NOTE SOME DEPENDANT EDEMA TO R HAND/ARM, FIXATOR INTACT TO R LEG WITH SOME 2+ PITTING EDEMA NOTED TO R FOOT(WHEN ASKED PT DOES NOT WANT LEG ELEVATED ON PILLOW) SKIN WARM AND NORMAL COLOR TO R FOOT, BS+, LUNGS SLIGHTLY DIMINISHED IN BASES. PT DENIES ANY PROBLEMS OR NEEDS AT THIS TIME, WILL MONITOR, RAILS UP, BED IN LOW POSITION, ENCOURAGED TO CALL NEEDED CALL LIGHT IN REACH. EMPTIED URINAL NOTE 200ML YELLOW URINE.
[2020-12-28 20:00] VITALS: BP 126/51; TEMP 98.2
--- NOTE | 2020-12-28 21:00 | NUR ---
TOOK PT DIABETIC SNACK OF SUGAR FREE COOKIES AND A DIET DRINK, WILL MONITOR CLOSELY.
--- NOTE | 2020-12-28 21:50 | NUR ---
PT AWAKE SITTING UP IN BED WATCHING TV WITH NO S/S OF DISTRESS NOTED, RESP RATE NONLABORED, O2 AT 2LPM VIA NC, TALKATIVE WITH LEASING PROPERTY MANAGER. GAVE NIGHTLY MEDICATIONS ALONG WITH PERCOCET 5/325MG PO PRN FOR C/O CONSTANT PAIN TO R LEG THAT IS A 6. LEASING PROPERTY MANAGER HANDED PT MEDS IN CUP AND HIS DRINK THEN PT TOOK MEDS ON HIS OWN WITH NO PROBLEMS NOTED. OFFERED TO REPOSITION PT'S R LEG OR ELEVATED ON PILLOW BUT PT STATES HE IS FINE AND DOES NOT NEED REPOSITIONING. WILL MONITOR CLOSELY, RAILS UP, BED IN LOW POSITION, CALL LIGHT AND URINAL WITHIN PT'S REACH, ENCOURAGED TO CALL NEEDED PT ACKNOWLEDGES UNDERSTANDING. PRN MED GIVEN AT 2159.
--- NOTE | 2020-12-28 23:20 | NUR ---
PT IN BED WITH EYES CLOSED AND NO S/S OF DISTRESS NOTED AT THIS TIME, PT AROUSES BRIEFLY AND DENIES ANY NEEDS OR PAIN, RESP RATE NONLABORED, O2 IN USE VIA NC, WILL MONITOR CLOSELY, RAILS UP, BED IN LOW POSITION, CALL LIGHT AND URINAL WITH IN PT'S REACH, ENCOURAGED TO CALL NEEDED.
--- NOTE | 2020-12-29 01:08 | NUR ---
PT FOUND RESTING IN BED IN POSITION OF COMFORT WITH EYES CLOSED AND SNORNING NOTED, NO S/S OF ACUTE DISTRESS NOTED, RESP RATE NONLABORED, O2 IN USE VIA NC, CALL LIGHT IN REACH, BED IN LOW POSITION, RAILS UP, WILL MONITOR CLOSELY.
--- NOTE | 2020-12-29 03:15 | NUR ---
RESTING IN BED WITH EYES CLOSED, NO S/S OF PAIN OR DISTRESS NOTED, RESP RATE NONLABORED, O2 AT 2LPM VIA NC, FIXATOR REMAINS ON R LEG, WILL MONITOR, RAILS UP, BED IN LOW POSITION, CALL LIGHT AND URINAL WITHIN PT'S REACH.
--- NOTE | 2020-12-29 05:00 | NUR ---
CONTINUES TO REST WITH EYES CLOSED, NO S/S OF PAIN OR DISTRESS NOTED, RESP RATE NONLABORED, O2 IN USE AT 2LPM VIA NC, SNORING NOTED AT TIMES, WILL MONITOR, RAILS UP, BED IN LOW POSITION, CALL LIGHT IN REACH.
[2020-12-29 08:00] VITALS: BP 128/51; TEMP 97.7
--- NOTE | 2020-12-29 10:41 | NUR ---
Called [phone] to schedule orthopedic appointment for Mr. Pratt in [place] if possible, as he verbalized refusal to go to [place], [place] for originally scheduled follow up appointment with his surgeon, Dr. Gamboa on Tuesday. Appointment made with Dr. Deutsch for Tuesday, January 12, 2021 at 1:45. Address is [address] [place] [address].
--- NOTE | 2020-12-29 10:54 | NUR ---
Resident not in room to notify of appointment change at this time. was present Tuesday12/26/2020 during the IDT conference when Mr. Pratt refused appointment in [place], [place]. Called at home, gave her the new appointment information for Dr. Deutsch in [place] on Tuesday, January 12, 2021 at 1:45. expressed need for transportation to be set up for the appointment.
[2020-12-29 20:21] VITALS: BP 135/51; TEMP 97.5
--- NOTE | 2020-12-30 10:15 | NUR ---
PATIENT RECEIVED BATH FROM PCT AND STUDENT NURSE. PATIENT TOLERATED WELL. PATIENT COMPLAINED OF NO PAIN TO RIGHT LOWER EXTREMITY. NAD NOTED. PATIENT RESTING AND FREE OF NEEDS. BAUDILIO CONTINUE TO MONITOR.
--- NOTE | 2020-12-30 17:41 | NUR ---
ABOUT 1130, CONTACTED DR. PRECIADO'S OFFICE FOR WOUND CARE INSTRUCTIONS. SPOKE WITH RONNY. SHE ADVISED THAT SHE WOULD DO SOME RESEARCH AND SPEAK WITH THE DOCTOR BECAUSE HE WAS A NEW PATIENT TO THEM. ABOUT 1530, CALLED DR. PRECIADO'S OFFICE TO FOLLOW UP WITH RONNY ABOUT WOUND CARE. SHE STATED THAT THE DOCTOR DID NOT WANT TO ISSUE WOUND CARE INSTRUCTIONS BECAUSE THEY KNEW NOTHING ABOUT THE PATIENT AND COULD NOT ACCESS RECORDS OF THE SURGERY. THEY ADVISED THE PATIENT TO GO TO [place] AND THAT THEY COULD NOT DO HIS FOLLOW UP AT DR. PRECIADO'S OFFICE. VASILE MONTELONGO RN CALLED DR. GINA READ'S OFFICE TO FOLLOW UP WITH DOCTOR WHO PERFORMED THE SURGERY. PATIENT NOW HAS AN APPOINTMENT IN [place], [place] ON 01/08/2021 AT 9:40AM. WOUND CARE INSTRUCTIONS TO BE GIVEN TO US TODAY OR TOMORROW 12/31/2020
[2020-12-30 20:09] VITALS: BP 145/73; TEMP 97.2
--- NOTE | 2020-12-30 20:15 | NUR ---
PT SITTING UP WITH SIDE RAILS UP TIMES TWO WITH BED IN LOWEST POSITION. PT HAD A BOWEL MOVEMENT. LINENS WERE CHANGED AND NAD NOTED AT THIS TIME.
[2020-12-31 08:00] VITALS: BP 140/57; TEMP 97.6
--- NOTE | 2020-12-31 10:45 | NUR ---
LEFT MESSAGE FOR SANDRINE CABRAL/INTERNAL AUDITOR AT DR JACEK PATINO, STATING THAT STAFF HAD MADE SEVERAL ATTEMPTS TO CONTACT SOMEONE REGARDING THIS PT AND HIS SURGERY SITE CARE. FOLLOW UP APPT IS OUT OF DATE RANGE OF THE RECOMMENED 7-10 DAYS POST VISIT DUE TO PT REFUSSING TO BE SEEN IN [place], APPT MADE IN [place] WITH FELLOW PHYSICIAN, SEVERAL DAYS LATER APPT WAS CANCELED BY STAFF FROM THE [facility] DUE TO MD REFUSSING TO SEE A PT HE HAD NEVER SEEN. A THIRD FOLLOW UP APPT, SECOND APPT FOR THE [facility] MADE.
--- NOTE | 2020-12-31 12:50 | NUR ---
PT'S GLUCOSE WAS 262, PT RECIEVED 6 UNITS OF INSULIN IN THE LT ARM. PT IS SITTING UPRIGHT IN THE CHAIR EATING LUNCH, PT HAS RT FOOT PROPPED. PT DENIES ANY NEEDS AT THIS TIME.
--- NOTE | 2020-12-31 16:50 | NUR ---
PT'S BLOOD GLUCOSE IS 264. PT RECIEVED 6 UNITS OF NOVOLIN R IN THE LEFT ARM. PT DENIES ANY NEEDS AT THIS TIME.
--- NOTE | 2020-12-31 17:18 | NUR ---
WHILE GIVING PT SCHEDULED DOSE OF MIRACLE MOUTHWASH SUPERINTENDENT COMMISSARY ASKED PT IF HE IS STILL EXPERIENCING THROAT SORENESS. PT STATED THAT HE NO LONGER HAD A SORE THROAT. SUPERINTENDENT COMMISSARY NOTIFIED DR. TALAVERA OF PT'S STATEMENT. DR. TALAVERA STATED THAT IT WAS OKAY TO DC THE MIRACLE MOUTHWASH.
--- NOTE | 2020-12-31 19:40 | NUR ---
IN TO CHECK ON PATIENT AT THIS TIME. HE IS LYING IN BED WATCHING TV. NC INTACT @ 3L/MIN. RESPIRATIONS EVEN AND UNLABORED. NAD NOTED. REQUESTING THAT HE RECEIVE PAIN MEDICINE TONIGHT. PERCOCET GIVEN PER MD ORDERS WITH OTHER PM MEDICATIONS. RIGHT FOOT SLIGHTLY ELEVATED ON A PILLOW. AQUACEL AND IMMOBILIZER BRACE INTACT. BED LOCKED AND IN LOWEST POSITION. CALL LIGHT WITHIN EASY REACH.
[2020-12-31 20:00] VITALS: BP 135/56; TEMP 98.8
--- NOTE | 2021-01-01 05:30 | NUR ---
PATIENT RESTING QUIETLY IN BED WITH EYES CLOSED. NC INTACT. RESPIRATIONS EVEN AND UNLABORED. NAD NOTED. BEDSIDE TABLE AND CALL LIGHT WITHIN EASY REACH OF PATIENT.
[2021-01-01 08:00] VITALS: BP 139/55; TEMP 97.8
--- NOTE | 2021-01-01 09:38 | NUR ---
01/01/21 3459 VISTIOR PRESENT IN ROOM.NAD NOTED.CC
--- NOTE | 2021-01-01 10:43 | NUR ---
01/01/21 1020 PT RESTING EYES CLOSED EASILY AROUSES.CHECKED RT LEG AQUACEL TO RT LEG IN PLACE NO DRAINAGE NOTED.CC 01/01/[address]RALPH READ OFFICE AND SPOKE WITH NURSE CHITRA CONCERNING GETTIING ORDERS FOR POSTOP CARE TO HAVE SUTUURES OR BRENTON REMOVED.SHE STATED YES THEY SHOULD COME OUT.CHITRA STATED SHE WILL GET ORDERS TO HAVE SUTURES OR BRENTON REMOVED AND WILL FAX ORDERS OVER TO US.FAX NUMBER PROVIDED EARILER.CC
--- NOTE | 2021-01-01 11:10 | NUR ---
01/01/[address]RALPH READ SENT OVER FOR POSTOP CARE.CC
--- NOTE | 2021-01-01 11:17 | NUR ---
01/01/21 1100 PHYSICAL THERAPY PRESENT IN ROOM WORKING WITH PATIENT.PT SITTING ON SIDE OF BED PRESENT IN ROOM.CC
--- NOTE | 2021-01-01 12:05 | NUR ---
01/01/21 1150 DSY REMOVED TO RT LEG NO BRENTON OR SUTURES NOTED CLEAN NO DRAINAGE NOTED TO AREA SKIN AREAS PINK IN COLR.CLEANED WITH NS AND DRIED.APPLIED ISLAND DSY TO AREA TO PREVENT FRICTION FROM BRACE.PT TOLERATED WELL.CC
--- NOTE | 2021-01-01 16:49 | NUR ---
i spoke to pt and his , Lily Tripp (Diane), in pts room today to determine discharge needs. Mrs. Tripp stated that pt already has transport wheelchair, electric wheelchair, bedside commode, and hospital bed at home. Pt stated he already has services with [facility] and that he would like to continue services with them. Pt stated he has an ortho appt 01/12 in [place] and that his PCP is Jesica Archuleta/ [facility].
--- NOTE | 2021-01-01 19:30 | NUR ---
PATIENT RESTING QUIETLY IN BED AT THIS TIME. NC INTACT @ 2L/MIN. RESPIRATIONS EVEN AND UNLABORED. PATIENT WATCHING TV. RIGHT THIGH COVERED WITH ISLAND DRESSING AND IMMOBILIZER BRACE. I OFFERED TO USE A PILLOW UNDERNEATH RLE TO ELEVATE IT, BUT PATIENT REFUSED. HE REQUESTED SOMETHING FOR PAIN. PERCOCET GIVEN WITH PM MEDICATIONS. NO OTHER NEEDS OR CONCERNS VOICED AT THIS TIME. BED LOCKED AND IN LOWEST POSITION. CALL LIGHT WITHIN REACH.
[2021-01-01 20:00] VITALS: BP 136/51; TEMP 98
--- NOTE | 2021-01-02 06:05 | NUR ---
PATIENT RESTING QUIETLY IN BED WITH EYES CLOSED. RESPIRATIONS EVEN AND UNLABORED. NAD NOTED. BED LOCKED AND IN LOWEST POSITION. CALL LIGHT WITHIN EASY REACH.
--- NOTE | 2021-01-02 10:18 | NUR ---
OBSERVED PATIENT WORKING WITH PT- NOTED THAT PATIENT WAS EXTREME MAX ASSIST X2 FOR TRANSFER FROM BED TO CHAIR. PT NOTED TO BE WITHDRAWN AND SEEMED TO BE IN A BAD MOOD, HE SAID "I DIDN'T GET MUCH SLEEP LAST NIGHT." PATIENT REFUSED BREAKFAST TRAY, STATING "I DON'T EAT BREAKFAST." PT REFUSED OFFERED SNACK. LUNGS CTA, BOWEL SOUNDS ACTIVE. PT REFUSED MIRALAX BECAUSE HE HAD SEVERAL BMS YESTERDAY. RT ARM FLACCID, RT HAND SLIGHTLY CONTRACTED. RT LEG EDEMATOUS FROM THIGH TO FOOT, NON PITTING. IMMOBILIZER UNFASTENED AND READJUSTED. NON-BLANCHABLE, DARK BLISTER NOTED TO BOTTOM OF RIGHT FOOT- SEE WOUND ASSESSMENT. PEDAL PULSES PRESENT BILATERALLY.
--- NOTE | 2021-01-02 11:29 | NUR ---
INTERDISCIPLINARY ROUNDING PERFORMED WITH THERAPY, PHARMACY, NURSING AND SB COORDINATOR. AT BEDSIDE, DIETARY ATTENDING VIA PHONE.
--- NOTE | 2021-01-02 13:22 | NUR ---
UNFASTENED IMMOBILIZER AND PERFORED SKIN CARE TO BLE, THEN IMMOBILIZER REAPPLIED.
--- NOTE | 2021-01-02 14:48 | NUR ---
SPOKE WITH MRS. ROY AFTER THE IDT MEETING CONCERNING SAFETY DISCHARGE OF THIS PATIENT. I SPOKE WITH TWO OF THEIR DAUGHTERS TONA AND FRIDA WHO HAVE AGREED TO MEET WITH THE IDT STAFF TUESDAY MORNING AT 930 FOR CONTINUED DISCUSSION ON SAFE DISCHARGE.
--- NOTE | 2021-01-02 18:58 | NUR ---
WOUND CARE PROVIDED TO RT THIGH- DRESSING REMOVED- AREA NOTED TO BE FREE FROM REDNESS, DRAINAGE, EDEMA, INCISION CLOSED. CLEANED WITH NS AND 4X4, PATTED DRY, LEFT OPEN TO AIR WITH 4X4 GAUZE TO PROTECT AT KNEE. PT CAMILA WELL. PT INCONTINENT LOOSE STOOL, PERICARE PROVIDED, SMALL 1CM OPEN AREA NOTED AT TOP BETWEEN BUTTOCKS, AREA CLEANED AND COVERED WITH BARRIER CREAM.
[2021-01-02 20:25] VITALS: BP 133/52; TEMP 98
--- NOTE | 2021-01-03 02:07 | NUR ---
SWING BED STATUS . PT WITH RIGHT FEMUR FRACTURE. PT HAS IMMOBILIZER ON. PT IS RECEIVING PHYSICAL THERAPY. PT TOLERATED PO SWALLOWING AND ADMINISTRATION OF PM MEDICATION. AIR CONTROL SET TO WARM TEMP. PT COMPLAINED OF FEELING COLD,
--- NOTE | 2021-01-03 04:35 | NUR ---
RESTING WITH EYES CLOSED.
--- NOTE | 2021-01-03 07:51 | NUR ---
I met with the IDT team yesterday and the patient is only interested in geeting home and Janice said he could not even transfer and he is insisting on going home and just wnats to sit in his chair at home. He is a smaller lady and will not be able to help him move since he is such a big man. Destinee told him very clearly this was not a good decision and told him if he went home probably both of them would be back in the hospital or in a [place] [facility]. The team just does not want the patient to leave to early.
--- NOTE | 2021-01-03 10:25 | NUR ---
PT REPOSITIONED TO RT SIDE. PT ABLE TO HAVE LARGE, SOFT BM. PERICARE PROVIDED, BARRIER CREAM APPLIED. RT LEG EDEMATOUS, ELEVATED ON PILLOW, RT FOOT ELEVATED.
--- NOTE | 2021-01-03 19:59 | NUR ---
PT AWAKE ALERT. PT HAS IMMOBILIZER ON RIGHT LEG. EDEMA NOTED IN RIGHT LEG AND FOOT. BOTTOM OF RIGHT FOOT HAS A BLACKENED AREA,ESCHAR,. O2 AT 2LNC IN USE. HEART RATE REGULAR. NO COMPLAINTS OF PAIN AT THIS TIME.
--- NOTE | 2021-01-04 00:35 | NUR ---
PT SLEEPING ON LEFT SIDE. NO DISTRESS NOTED. O2@2LNC IN USE.
[2021-01-04 08:00] VITALS: BP 130/52; TEMP 97.9
--- NOTE | 2021-01-04 09:27 | NUR ---
PT CHECKED FOR INCONTINENCE AND NOTED TO HAVE URINE IN BRIEF. PERICARE PROVIDED. PT ENCOURAGED TO REPOSITION OFTEN AND IS ACCEPTING OF BEING PLACED ON RIGHT SIDE. SKIN PREP APPLIED TO DTI ON RT FOOT. BARRIER CREAM APPLIED TO BUTTOCKS. PT PLACED ON RIGHT SIDE.
--- NOTE | 2021-01-04 11:00 | NUR ---
PATIENT C/O OF PAIN TO RIGHT LEG, 8/10 ON NUMERIC PAIN SCALE. PERCOCET X1 TAB GIVEN WHOLE TO PATIENT WITHOUT DIFFICULTY.
--- NOTE | 2021-01-04 11:48 | NUR ---
AT BEDSIDE TO EAT LUNCH WITH PT.
[2021-01-04 20:06] VITALS: BP 145/49; TEMP 97.5
[2021-01-05 08:00] VITALS: BP 148/54; TEMP 98.1
--- NOTE | 2021-01-05 13:00 | NUR ---
CARRIE OT AND PILAR, PT REPORTS PT STOOD UP X5 WITH LIMITED TO MODERATED ASSISTANCE AT BEDSIDE.
--- NOTE | 2021-01-05 13:26 | NUR ---
PT LAYING IN BED IN HF AT THIS TIME. PT AT BEDSIDE. PT DENIES ANY C/O OR NEEDS AT THIS TIME. CARRIE OT AND PILAR, PT AT PT'S BEDSIDE TO BEGIN THERAPY.
--- NOTE | 2021-01-05 19:40 | NUR ---
PATIENT HAD MODERATELY LARGE BM. LINENS AND BRIEF CHANGED AT THIS TIME WITH TWO PERSON EXT. ASSIST. REQUIRED THREE PERSON EXT. ASSIST TO MOVE PATIENT UP IN BED. NC INTACT @ 3L/MIN. RESPIRATIONS EVEN AND UNLABORED. NAD NOTED. CALAZIME OINTMENT APPLIED TO BUTTOCK. NO REDNESS OR OPEN AREAS NOTED. DRESSING TO RIGHT UPPER THIGH CHANGED. INCISION CLEANSED WITH NS PER MD ORDERS. PATIENT TOLERATED WELL. BED LOCKED AND IN LOWEST POSITION. CALL LIGHT WITHIN REACH.
[2021-01-05 20:43] VITALS: BP 126/59; TEMP 98.5
--- NOTE | 2021-01-06 05:30 | NUR ---
PATIENT RESTING QUIETLY IN BED WITH EYES CLOSED. RESPIRATIONS EVEN AND UNLABORED. NAD NOTED. CALL LIGHT WITHIN EASY REACH.
[2021-01-06 08:00] VITALS: BP 132/48; TEMP 98.3
--- NOTE | 2021-01-06 11:16 | NUR ---
Follow up IDT care plan/discharge planning meeting today at 9:30 AM - 10:30 AM with patient's daughter Lucinda, granddaughter Rinku and daughter Morelia. was scheduled to participate, but did not come to meeting. Discussed amount of care patient is requiring and concerns about being able to meet his care needs at home. Grandson Jabari lives with patient and , but he is not always at home. Daughters verbalized understanding that their mother is no longer able to provide the level of heavy care that he is requiring. Family given multiple options for care after discharge from this center. Family is going to meet and discuss options in order to devise a plan for patient's care going forward. Family will follow up with center tomorrow.
--- NOTE | 2021-01-06 11:32 | NUR ---
OT IN RM WITH PATIENT AT THIS TIME, PATIENT SITTING ON BSC WIPING SELF WITH WASHCLOTH AND WITH ASSISTANCE FROM OT, OT STATES IT TOOK EXTENSIVE ASSITANCE X2 TO MANEUVER PATIENT FROM BED TO BSC AND PATIENT PUT VERY LITTLE WEIGHT ON RT LOWER EXT, NAD NOTED, PT STATES HE WOULD LIKE PAIN MEDICATION DUE TO OT THERAPY, WILL REASSES PAIN AFTER ADMINISTRATION, NO FURTHER NEEDS AT THIS TIME, WILL CONINTUE TO MONITOR
--- NOTE | 2021-01-06 14:53 | NUR ---
IN PT RM TO CHANGE BRIEF AT THIS TIME DUE TO PT HAVING A BM, NEFTALY, MYSELF, AND STUDENT ASSITED WTH CHANGING, PT TURNED TO LT SIDE WITHUOT ASSIST, PT NEEDED EXTENTSIVE ASSIST WITH TURNING TO THE RT SIDE, PT HAS REDDNESS TO SACRUM NOTED THAT IS BLANCHABLE AND NO OPEN AREAS, CALAZIME LOTION APPLIED, PT TOLERATED WELL, PT REPOSITIONED UP IN BED WITH EXTENESIVE ASSIST X2 AND TOTAL DEPENDENCE NEEDED, NO FURTHER NEEDS AT THIST KAYE, CALL LIGHT PLACED WITHIN REACH, WILL CONTINNUE TO MONITOR
--- NOTE | 2021-01-06 15:45 | NUR ---
IN PT RM TO CLEAN SURGICAL WOUND AT THIS TIME, ISLAND DRESSING REMOVED FROM WOUND, SURGICAL WOUND CLEAN DRY AND INTACT WITH NO DRAINAGE OR OPEN AREAS NOTED, WOUND CLEANED WITH NS AND A 4X4 GAUZE AND PAPER TAPE APPLIED TO PROTECT UPPER SURGICAL WOUND FROM BRACE, PT TOLERATED WELL, BRACE REAPPLIED, NO FURTHER NEEDS AT THIST TIME, WILL CONTINUE TO MONITOR
--- NOTE | 2021-01-06 16:05 | NUR ---
i spoke with pt in his room today to confirm his scheduled ortho fu appt with Dr. Jf Fournier at the [facility] at [address], [address], [place] [address] in the [facility] on the [address] of [facility]. I also called the ortho Dr. Fournier and spoke with Lissette Monique about pts scheduled time of 9:40am on this Tuesday01/09/21 and explained to her that the transport company [employer] could only pick the pt up as early as 8:30am at our [facility], so his appt time of arrival would be between 10:30-11am. She stated this would be fine, but that their office closes at 12:30 so he would need to make it there as close to 11am as possible to be seen. I spoke with Ifrah at [address] [place] [address] and sceduled his 01/09/21 flower buncher or picker time for 8:30am. She is aware that the ortho Dr. Fournier's office is expecting pt around 1030-11am and stated that woudl be fine. Dr. Jf Fournier [phone]/ fx [address] [place] [address] / fx [phone]
[2021-01-06 20:00] VITALS: BP 132/54; TEMP 98.2
--- NOTE | 2021-01-06 20:40 | NUR ---
PT AWAKE SITTING UP IN BED WITH NO S/S OF ACUTE DISTRESS NOTED, RESP RATE NONLABORED, O2 AT 2LPM VIA NC, R LEG ELEVATED ON PILLOW. PT DENIES ANY PROBLEMS OR NEEDS, TALKATIVE WITH DOOR OPENER. NIGHTLY SNACK GIVEN PER PT REQUEST, PT EATS ON HIS OWN WITH ONLY MINIMAL SET UP HELP AT TIMES. ENCOURAGED TO CALL NEEDED, RAILS UP, BED IN LOW POSITION, URINAL AND CALL LIGHT IN REACH. WILL MONITOR.
--- NOTE | 2021-01-06 23:00 | NUR ---
RESTING IN BED WITH EYES CLOSED, NO S/S OF PAIN OR DISTRESS NOTED, WILL MONITOR CLOSELY, RAILS UP, BED IN LOW POSITION, CALL LIGHT AND URINAL WITH IN PT'S REACH.
--- NOTE | 2021-01-07 05:25 | NUR ---
[id number] WITH EYES CLOSED, NO S/S OF PAIN OR DISTRESS NOTED, WILL MONITOR CLOSELY, RAILS UP, BED IN LOW POSITION.
[2021-01-07 08:00] VITALS: BP 137/75; TEMP 98.3
--- NOTE | 2021-01-07 14:51 | NUR ---
SPOKE TO KALYAN AT DR COHEN OFFICE REGARDING PT APPT TIME . I INFORMED HER THAT DUE TO TRANSPORTATION THE APPOINTMENT TIME HAD TO REMAIN TUESDAY AT 1040 AM AND PT COULD NOT MAKE IT ANY EARLIER. SHE STATED SHE WOULD LET PAYAL KNOW
--- NOTE | 2021-01-07 18:30 | NUR ---
PATIENT WOUND SITE CLEANED WITH NORMAL SALINE AND DRESSED WITH 4X4 FOLDED IN HALF AND SECURED WITH TAPE. KNEE IMMOBILIZER PUT BACK INTO PLACE. PATIENT DID NOT COMPLAIN OF PAIN. PATIENT TOLERATED WELL.
[2021-01-07 20:00] VITALS: BP 144/53; TEMP 97.8
--- NOTE | 2021-01-07 20:00 | NUR ---
ROUNDS MADE. PT IS SWING BED STATUS. PT IS RECEIVING PT FOR FRACTURE OF LEFT FEMUR BONE. NO COMPLAINTS AT THIS TIME. ICE AND FRESH WATER WAS PLACED ON BEDSIDE TABLE. BEDSIDE TABLE IN EASY REACH. CALL LIGHT IN EASY REACH. ATTENTION TO PT'S RIGHT FOOT DEEP TISSUE INJURY.
--- NOTE | 2021-01-07 21:30 | NUR ---
PT WAS GIVEN PERCOCET ORDERED FOR COMPLAINTS OF LOWER RIGHT EXTREMITY PAIN. PT WAS ASSISTED WITH REPOSITIONING IN BED.
[2021-01-08 08:00] VITALS: BP 149/53; TEMP 98
--- NOTE | 2021-01-08 10:17 | NUR ---
PT AT BEDSIDE INSTRUCTING SON ON TRANSFERS.
--- NOTE | 2021-01-08 15:24 | NUR ---
per Justina Mays NOMNC was received from [facility] Rosina stating pts last covered day is 01/09/21. Pt and verbally notified and state they do not agree with these findings, they are requesting to complete ortho appt tomorrow in anticiaption of full weight bearing status so that pt can continue to participate in more extensive physical therapy here in order to transition home and to return closer to his prior level of function and usual setting. Dr. South and therapists are all in agreement that if pt is full weight bearing after tomorrow that pt may be able to meet his goals of becoming ambulatory or minimal assist with ambulation prior to returning home.
--- NOTE | 2021-01-08 15:35 | NUR ---
i spoke with Dr. Fournier's office today [phone] to confirm pts appt for 01/09/21 @ 10:45am in [place], i am faxing them request for pts brace wearing recommendation and pts weight bearing status to please fax info back to us or to please send info back with pt so that we can proceed with pts care, fax [phone].
[2021-01-08 20:11] VITALS: BP 140/51; TEMP 98.9
[2021-01-09 08:00] VITALS: BP 158/55; TEMP 98.7
--- NOTE | 2021-01-09 08:09 | NUR ---
COMMUNICATIONS PLANNER ADMINISTERED MORNING MEDICATIONS [place] FOR PT TO LEAVE FOR [facility]ORS APPT IN [place] AT 0830. PT ATTEMPTED TO SWALLOW EVERY PILL IN THE MEDICINE CUP AT ONCE. PT HAS BEEN EDUCATED AGAINST THIS IN THE PAST. PT BEGAN TO CHOKE ON PILLS PT WAS SAT UP AT A 90 DEGREE ANGLE AND PILLS WENT DOWN AT THAT TIME. COMMUNICATIONS PLANNER REMAINED WITH PT AFTERWARDS TO ENSURE THAT PT HAD NO COMPLICATIONS DUE DO TO CHOKING. PT IS SHOWING NO SIGNS OF DISTRESS AT THIS TIME.
--- NOTE | 2021-01-09 08:14 | NUR ---
PHYSICAL THERAPY IS IN WITH PT AT THIS TIME. PT REFUSES TO GET DRESSED FOR HIS DR'S APPT TODAY BUT STATES THAT HE WOULD RATHER GO IN THE HOSPITAL GOWN. PT ALLOWED PHYSICAL THERAPY TO MOVE RIGHT LEG SOME BUT STATED THAT HE IS NOT A MORNING PERSON AND DOES NOT WANT TO BE MESSED WITH. PT IS NOT IN A PLEASANT MOOD THIS MORNING AND DOES NOT WANT TO COOPERATE WITH INSTRUCTIONS.
--- NOTE | 2021-01-09 08:47 | NUR ---
PT LEFT HOSPITAL TO GO TO DOCTOR'S APPT IN [place] VIA [employer] [facility]. PRN PAIN MEDICATIONS WERE GIVEN BEFORE DEPARTURE. NAD WAS NOTED DURING DEPARTURE.
--- NOTE | 2021-01-09 12:28 | NUR ---
per Efra Rodas at Dr. Fournier's office [phone], they have sent recommendations in writing with the pt back from his appt today, but that recommendations are that they changed his ROM to 0-70 degrees, continue to wear the brace and continue toe touch weight bearing only and to follow up with Dr. Deutsch in [place] in one month. Dr. Fournier has spoke with Dr. Deutsch personally and Dr. Deutsch has agreed to see the pt in [place]. I reported this info to Temitope Nicolas in therapy.
--- NOTE | 2021-01-09 13:55 | NUR ---
PT HAS RETURNED BACK TO HIS ROOM FROM HIS DOCTOR'S APPT TODAY. PT WAS BROUGHT IN ON A STRETCHER BY [facility]. NO DISTRESS IS NOTED AT THIS TIME.
[2021-01-09 20:00] VITALS: BP 142/47; TEMP 98
--- NOTE | 2021-01-09 21:30 | NUR ---
PT AWAKE SITTING UP IN BED WATCHING TV WITH NO ACUTE DISTRESS NOTED, TALKATIVE WITH LIFT BUILDER WHOLE, RESP RATE NONLABORED, O2 IN USE VIA NC, R LEG ELEVATED ON PILLOW AND BRACE IN USE WITH NO PROBLEMS NOTED. C/O "THROBBING" CONSTANT PAIN TO R LEG THAT IS AN "8" ON SCALE, GAVE PERCOCET 5/325MG PO PRN ALONG WITH NIGHTLY MEDICATIONS. BROUGHT PT MEDICATIONS, PT HELD MEDS IN MEDICINE CUP AND HIS DRINK TOOK MEDS WITH NO ASSIST. NOW EATING DIABETIC NIGHTLY SNACK. DENIES ANY OTHER NEEDS OR PROBLEMS, RAILS UP, BED IN LOW POSITION, CALL LIGHT AND URINAL WITH IN PT'S REACH, ENCOURAGED TO CALL NEEDED.
--- NOTE | 2021-01-09 22:30 | NUR ---
PT RESTING IN BED WITH EYES CLOSED, NO S/S OF PAIN OR DISTRESS NOTED, NO S/S OF REACTIONS NOTED TO MEDICATIONS. RAILS UP, BED IN LOW POSITION, CALL LIGHT IN REACH.
--- NOTE | 2021-01-09 23:10 | NUR ---
RESTING IN BED WITH EYES CLOSED, NO S/S OF PAIN OR DISTRESS NOTED, RESP RATE NONLABORED, O2 IN USE VIA NC, URINAL WITH IN PT'S REACH, WILL MONITOR, RAILS UP, BED IN LOW POSITION, CALL LIGHT IN REACH. R FOOT/LEG REMAINS ON PILLOW WITH BRACE IN USE.
--- NOTE | 2021-01-10 02:00 | NUR ---
PT RESTING QUIETLY IN POSITION OF COMFORT WITH EYES CLOSED, NO S/S OF PAIN OR DISTRESS NOTED, O2 IN USE VIA NC, BRACE IN USE ON R LEG, R LEG AND R ARM ON PILLOW. WILL MONITOR CLOSELY, RAILS UP, BED IN LOW POSITION, CALL LIGHT IN REACH.
--- NOTE | 2021-01-10 05:26 | NUR ---
RESTING WITH EYES CLOSED, NO S/S OF PAIN OR DISTRESS NOTED, RESP RATE NONLABORED, O2 IN USE VIA NC, WILL MONITOR CLOSELY, RAILS UP, BED IN LOW POSITION, CALL LIGHT AND URINAL IN PT'S REACH.
[2021-01-10 08:00] VITALS: BP 135/62; TEMP 98.2
--- NOTE | 2021-01-10 08:50 | NUR ---
PT'S AM MEDS GIVEN. PT NOTED TO BE ALERT AND ORIENTED X4. PT TALKING AND JOKING AT THIS TIME. PT STATES "MY LEGS IS BOTHERING ME" ASSESSED PT'S LEG, 2+ EDEMA NOTED TO RIGHT FOOT. PEDAL PULSES REGULAR AND EQUAL BILAT. PT REQUESTS HIS PAIN MED AT THIS TIME.
--- NOTE | 2021-01-10 09:15 | NUR ---
BACK IN TO GIVE PT HIS PAIN MED. PT NOTED TO BE PALE AND QUIET AT THIS TIME. PT REPORTS FEELING LIKE HE IS GOING TO THROW UP. NOTIFIED MD REC'D ORDER FOR ZOFRAN 4MG PO X1 AT THIS TIME. PT'S GLUCOSE NOTED TO BE 184 VIA FINGER STICK. V/S NOTED TO BE 98.2-T; HR-58; BP-155/61. PT DENIES ANY CHEST PAIN OR DISCOMFORT, PT DENIES FEELING DEPRESSED PT STATES "I JUST FEEL SICK" DR. CAREY NOTIFIED OF PT'S C/O. REC' ORDERS TO OBTAIN CBC AND BMP. WILL CON'T TO MONITOR PT.
[2021-01-10 10:52] LABS: PLATELET COUNT 126 K/uL (142-355)
[2021-01-10 10:54] LABS: POTASSIUM 4.4 mmol/L (3.6-5.2)
[2021-01-10 20:00] VITALS: BP 136/55; TEMP 98.9
[2021-01-11 08:00] VITALS: BP 136/51; TEMP 97.9
--- NOTE | 2021-01-11 10:54 | NUR ---
PT AT BEDSIDE. PT NOTED TO STILL BE SLEEPING WITHOUT DISTRESS NOTED.
--- NOTE | 2021-01-11 13:00 | NUR ---
PT LAYING IN BED AWAKE WITH TWO VISITORS AT BEDSIDE AT THIS TIME.
--- NOTE | 2021-01-11 19:50 | NUR ---
AWAKE WATCHING TV WITH NO DISTRESS NOTED, STATES HE FEELS BETTER TODAY AND IS SMILING. RESP RATE NONLABORED, O2 AT 2LPM VIA NC, BRACE INTACT TO R LEG AND LEG ON PILLOW, R HAND ELEVATED ON PILLOW, URINAL WITH IN PT'S REACH, TALKATIVE WITH EGG SEPARATOR. BROUGHT PT NIGHTLY DIABETIC SNACK, DENIES ANY NEEDS OR PROBLEMS. PT REPOSITIONED AND PULLED UP IN BED, RAILS UP, BED IN LOW POSITION, CALL LIGHT IN REACH, ENCOURAGED TO CALL NEEDED.
[2021-01-11 20:00] VITALS: BP 129/50; TEMP 98.7
--- NOTE | 2021-01-11 21:10 | NUR ---
PT AWAKE WITH NO DISTRESS NOTED, TALKATIVE WITH INTERLOCKING TOWER OPERATOR. GAVE NIGHTLY MEDICATIONS, ALSO GAVE PERCOCET 5/325MG PO PRN FOR CONSTANT PAIN TO R LEG THAT IS A "6" ON SCALE, REPOSITIONED LEG ON PILLOW. WILL MONITOR, RAILS UP, BED IN LOW POSITION, CALL LIGHT IN REACH.
--- NOTE | 2021-01-11 22:05 | NUR ---
RESTING IN BED WITH EYES CLOSED, NO S/S OF PAIN OR DISTRESS NOTED, WILL MONITOR, RAILS UP, BED IN LOW POSITION.
--- NOTE | 2021-01-12 02:15 | NUR ---
RESTING WITH EYES CLOSED, NO S/S OF PAIN OR DISTRESS NOTED, RESP RATE NONLABORED, O2 AT 2LPM VIA NC, WILL MONITOR, RAILS UP, BED IN LOW POSITION, URINAL AND CALL LIGHT IN REACH.
--- NOTE | 2021-01-12 03:20 | NUR ---
RESTING WITH EYES CLOSED, NO S/S OF PAIN OR DISTRESS NOTED, WILL MONITOR, O2 IN USE, RAILS UP, BED IN LOW POSITION, CALL LIGHT IN REACH.
--- NOTE | 2021-01-12 12:20 | NUR ---
PT BATHED AND UP TO CHAIR X2 MAX ASSIST WITH PT. PT C/O 10/ PAIN TO LLE AND TO RLE. ORDERED PO PAIN LINE INSTALLER.
--- NOTE | 2021-01-12 13:18 | NUR ---
PT TO ROOM TO ASSIST HIM BACK TO BED AFTER BEING IN CHAIR. PT STATES HE CANNOT PUT ANY WEIGHT ON HIS LEFT LEG TO HELP THERAPY GET HIM BACK INTO BED BECAUSE HIS LEG HURTS WHEN HE PUTS WEIGHT ON IT. LIFT UTILIZED TO TRANSFER PATIENT BACK TO BED. PT AGITATED AND RAISING HIS VOICE AT STAFF. PATIENT SUCCESSFULLY TRANSFERRED BACK TO BED, IMMOBILIZER READJUSTED, RLE SWOLLEN 1+ PE, ELEVATED ON PILLOWS. RT HAND ELEVATED ON PILLOW. AT BEDSIDE. CALL LIGHT IN EASY REACH. WILL CONTINUE TO MONITOR.
--- NOTE | 2021-01-12 18:32 | NUR ---
PT IN NAD, NO C/O PAIN OR DISCOMFORT AT THIS TIME. CALL LIGHT IN EASY REACH, BED LOW, LOCKED, SR UP X2 FOR SAFETY. WILL CONTINUE TO MONITOR.
[2021-01-12 19:40] VITALS: BP 138/55; TEMP 98.4
--- NOTE | 2021-01-12 21:19 | NUR ---
01/12/211999: PT AWAKE, ALERT,DENIES PAIN AT THIS TIME. RIGHT LEG IN IMMOBILIZER. PREVIOUS SURGICAL SITE HEALED WITH ONLY FAINT LINES OF WHERE IT WAS. PT REFUSES TO GET OFF OF BACK. HAS BEEN INSTRUCTED ABOUT SKIN BREAKDOWN FROM LYING IN ONE PLACE TOO LONG. 2+ EDEMA NOTED IN RIGHT FOOT.
--- NOTE | 2021-01-13 02:34 | NUR ---
01/13/21 0200: PT ASLEEP O2@2LNC IN USE. PT SHOWS NO S/S OF DISTRESS.
--- NOTE | 2021-01-13 09:43 | NUR ---
PT REPOSITIONED IN BED, SKIN CARE PROVIDED TO BLE, IMMOBILIZER REMOVED AND REPOSITIONED THEN REPLACED. James MONTELONGO RNCN IN TO ASSESS WOUND TO L BUTTOCK. WOUND CARE PROVIDED BY Jmaes MONTELONGO RN. PT POSITIONED WITH WEIGHT OFF BUTTOCKS, CALL LIGHT IN EASY REACH. BED LOW, LOCKED, SR UPX2 FOR SAFETY. AROM PROVIDED TO RUE, PT CAMILA WELL.
--- NOTE | 2021-01-13 10:11 | NUR ---
i spoke with pts , Mrs. Tripp, on phone this am [phone] to assess pts discharge plan as an update to his last ortho appt on 01/09. His weight bearing status is still toe touch on the right LE continuing x 1 month until re-eval by ortho. She stated his left LE was also causing him some pain. I again inquired if she and her grandson, Jabari Oates, would be able to manage his care at home. She stated "I dont know but he wants to come home". I explained to her that although he wants to come home that our hospitalist and therapists have recommended at least continued short term rehab in LTC until he is released to full weight bearing status by his ortho, so that she and her grandson will safely be able to manage his care at home. She verbalized understanding. She asked that the therapist, Yarely, and physician speak with pt about this today.
--- NOTE | 2021-01-13 10:17 | NUR ---
i rec call from Jabari capellan, ph [phone] and [phone], this am to ask if they can bring pts power wheelchair to his room today to see if therapy thinks this will help encourage pt to participate safely as indicated by therapists to reevaluate his discharge needs and plan. I spoke to Merlin Schrader and PARVEZ Felipe and they both agreed to try this if pt is able to participate safely this week. Ezra instructed that pt can only be transferred to power chair by therapy or with therapists instruction at all times, he verbalized understanding and agreement.
--- NOTE | 2021-01-13 11:04 | NUR ---
PT REPOSITIONED AND NOTED TO BE CLEAN AND DRY.
--- NOTE | 2021-01-13 12:41 | NUR ---
GRANDSON, SPOUSE AND OMER FROM UR IN TO SPEAK WITH PT ABOUT PLACEMENT.
--- NOTE | 2021-01-13 13:24 | NUR ---
PT UP TO WC AND TAKEN OUTSIDE BY PT.
--- NOTE | 2021-01-13 16:56 | NUR ---
Pts , Nereida Tripp, and grandson, Jabari Oates, requested this commercial loan underwriter at bedside to discuss pts discharge plan. Mr. Tripp was awake, alert, and oriented to person and place. When i asked Mr. Tripp how he was feeling, he stated "ok". When i asked family members if they thought pt was safely able to discharge home with them, Jabari capellan, stated "not safely". He went on to state that Mrs. Tripp is not able to lift pt up from the bed to safely transfer pt to bedside commode or to wheelchair. He stated that he feels like Mr. Tripp needs Longterm Care until his fracture is fully healed and until he can start performing weight bearng on his right LE. When i asked Mr. Tripp if he was in agreement with this, he stated, "Its not what i want". When i asked Mrs. Tripp if she was in agreement with this plan of care untilpt can fully weight bear, she stated "yes". Mrs. Tripp was tearful and stated, "i only want whats best for him". Mr. Tripp stated "i will go if i have to". Mr. Oates stated that he is afraid if pt goes home that he will fall or reinjure his right leg. Mrs. Tripp verbalized agreement that she is also fearful of him "falling" or "not being able to get out of bed at home". They asked that i reach out to the local LTC centers and let them know if there are any beds available in [facility], or [place].
--- NOTE | 2021-01-13 18:11 | NUR ---
GRANDDAUGHTER IN TO SEE PT. PT IN NAD AT THIS TIME. CALL LIGHT IN EASY REACH. WILL CONTINUE TO MONITOR.
[2021-01-13 19:45] VITALS: BP 146/50; TEMP 98.1
--- NOTE | 2021-01-13 20:18 | NUR ---
PT AWAKE, ALERT, DENIES DISCOMFORT AT THIS TIME. IMMOBILIZER TO RIGHT LEG SECURE. PT DENIES BEING UPSET ABOUT GOING [facility]. PT STATED" WHAT REASON DO I HAVE ABOUT BEING MAD ABOUT IT." PT HAS REDENED AREA TO RIGHT SIDE OF BUTTOCKS. ENCOURAGED HIM TO LET US REPOSITION HIM DURING THIS SHIFT. PT DID NOT RESPOND.
--- NOTE | 2021-01-14 00:15 | NUR ---
PT RESTING QUIETLY. NO DISTRESS NOTED.
--- NOTE | 2021-01-14 04:25 | NUR ---
PT ASLEEP NO DISTRESS NOTED.
[2021-01-14 08:00] VITALS: BP 143/55; TEMP 98
--- NOTE | 2021-01-14 09:00 | NUR ---
PATIENT CURRENTLY IN HALLWAY ON ELECTRIC WHEELCHAIR WITH PT AT SIDE, NAD NOTED, PATIENT IS CONTROLLING WHEELCHAIR WIHTOUT ASSITANCE, PT STATES IT TOOK EXTENSIVE ASSITANCE X2 TO GET PATIENT FROM BED TO WHEELCHAIR AND FROM WHEELCHAIR BACK TO BED.
--- NOTE | 2021-01-14 09:45 | NUR ---
IN PT RM FOR MORNING MEDICATION AND ASSESSMENT, PT IS LYING IN LF, NAD NOTED, PT STATES HE HAS BILAT LEG PAIN AT THIS TIME AT A 5 ON 0-10 PAIN SCALE, PAIN MEDICATION GIVEN WITH MORNING MEDS, PT TOLERATED MEDICATIONS WELL, BRACE TO RT LEG INTACT, SURGICAL WOUND C/D/I WITH NO SWELLING, REDNESS OR DRAINAGE NOTED, 2+ PITTING EDEMA NOTED TO RT LOWER LEG AND PEDAL, PT HAS NC ON AT 2L WITH NONLABORED BREATHING, PT HAS NO FURTHER NEEDS AT THIS TIME, CALL LIGHT IS WITHIN REACH, WILL CONTINUE TO MONITOR
--- NOTE | 2021-01-14 16:54 | NUR ---
IN PT RM TO PERFROM DRESSING CHANGE TO TOP OF LT BUTTOCK, OLD DRESSING REMOVED, REDDNESS NOTED TO SACRAL AREA THAT IS BLANCHABLE WITH STAGE 2 WOUND TO LT BUTTOCK WITH NO DRAINAGE NOTED, AREA CLEANED AND DRESSING REPLACED WITH HYDROGEL GAUZE, AQUACEL, AND OPTIFOAM PLACED ON TOP TO SECURE THE GAUZE AND AQUACEL, PT TOLERATED WELL, PT ASSISTED WITH TURNING TO EITHER SIDES WITH EXTENSIVE ASSITANCE X1, NO FURTHER NEEDS AT THIS TIME, BED PLACED BACK IN LOWEST POSITION, CALL LIGHT PLACED WITHIN REACH, WILL CONTINUE TO MONITOR
--- NOTE | 2021-01-14 17:19 | NUR ---
After speaking with Mrs. Tripp again later yesterday, she stated that pt was in agreement to go to LTC until he is full weight bearing on his right LE. SHe stated that she and grandson, Jabari Oates, are both in agreement with this decision. She stated her first choice is for pt to be at the [facility], second choice in [place], and third choice in [place]. I have reached out to all 3 centers and pt has been offered a bed at [facility] for LTC. per Lissette Jasso @ [facility], they can accept pt for LTC tomorrow, Dr. Rudolph and family in agreement.
--- NOTE | 2021-01-14 19:45 | NUR ---
PATIENT RESTING QUIETLY IN BED WATCHING TV. RESPIRATIONS EVEN AND UNLABORED. NC INTACT @ 2L/MIN. REQUESTING PAIN MEDICATION WITH PM MEDS. IMMOBILIZER BRACE INTACT TO RLE. PITTING EDEMA TO RIGHT FOOT- ELEVATED SLIGHTLY ON PILLOW. BED LOCKED AND IN LOWEST POSITION. CALL LIGHT WITHIN REACH OF PATIENT.
[2021-01-14 20:46] VITALS: BP 140/54; TEMP 97.6
--- NOTE | 2021-01-15 03:05 | NUR ---
PATIENT RESTING QUIETLY IN BED WITH EYES CLOSED. RESPIRATIONS EVEN AND UNLABORED. NAD NOTED. CALL LIGHT WITHIN REACH.
--- NOTE | 2021-01-15 05:45 | NUR ---
PATIENT RESTING QUIETLY IN BED WITH EYES CLOSED. NAD NOTED. CALL LIGHT WITHIN REACH.
--- NOTE | 2021-01-15 10:39 | NUR ---
PT DC INSTRUCTIONS GIVEN AND EXPLAINED TO PT AND , BOTH VERBALIZED UNDERSTANDING, PT WILL BE TRANSFERRED TO [facility], REPORT CALLED TO LAW [facility] ON C POWER.
--- NOTE | 2021-01-15 11:20 | NUR ---
PT D/C VIA STRETCHER ACCOMPANIED BY EMS TO BE ADMITTED TO [facility], NAD NOTED, BELONGINGS GIVEN TO AND PAPERWORK GIVEN TO EMS TO BE GIVEN TO NURSE AT [facility] UPON ADMISSION
== END 2021-01-15 11:15 | DRG 560 ==
LOC: MED/SURG 13:31
PROVIDERS: Internal Medicine; ADMIT Internal Medicine Endocrinology, Diabetes & Metabolism; ATTEND Internal Medicine Endocrinology, Diabetes & Metabolism
DX: S72.461D Displaced supracondylar fracture with intracondylar extension of lower end of right femur, subsequent encounter for closed fracture with routine healing (principal); I69.351 Hemiplegia and hemiparesis following cerebral infarction affecting right dominant side; Z91.81 History of falling; E11.9 Type 2 diabetes mellitus without complications; R26.2 Difficulty in walking, not elsewhere classified; M62.81 Muscle weakness (generalized); Z74.1 Need for assistance with personal care; K21.9 Gastro-esophageal reflux disease without esophagitis; I10 Essential (primary) hypertension; K59.00 Constipation, unspecified; F41.9 Anxiety disorder, unspecified; E78.5 Hyperlipidemia, unspecified; F32.9 Major depressive disorder, single episode, unspecified
CPT/HCPCS: 80048; 81000; 82947; 85027; 87081; J1650

== ENCOUNTER 2021-01-15 12:52 | Inpatient (IN) | payer OTHER | END 2021-02-10 15:43 | disposition still patient (30) | LOC: PAVC 12:52 | PROVIDERS: ADMIT Internal Medicine; ATTEND Internal Medicine ==

== ENCOUNTER 2021-01-16 08:57 | Outpatient (CLI) | payer OTHER ==
[2021-01-16 09:18] LABS: PLATELET COUNT 138 K/uL (142-355)
[2021-01-16 09:25] LABS: POTASSIUM 4.2 mmol/L (3.6-5.2)
== END 2021-01-16 21:47 | disposition home or self-care (01) ==
LOC: LAB 08:57
PROVIDERS: ATTEND Internal Medicine
DX: E11.9 Type 2 diabetes mellitus without complications (principal); K21.9 Gastro-esophageal reflux disease without esophagitis; I10 Essential (primary) hypertension; S72.401D Unspecified fracture of lower end of right femur, subsequent encounter for closed fracture with routine healing
CPT/HCPCS: 80053; 82248; 82607; 82746; 83036; 83540; 85027; 87081

== ENCOUNTER 2021-02-02 13:05 | Outpatient (CLI) | payer OTHER | END 2021-02-02 21:02 | disposition home or self-care (01) | LOC: RAD 13:05 | PROVIDERS: ATTEND Internal Medicine | DX: S72.491D Other fracture of lower end of right femur, subsequent encounter for closed fracture with routine healing (principal) ==

== ENCOUNTER 2021-02-10 16:53 | Inpatient (IN) | payer OTHER | END 2021-03-12 08:00 | disposition still patient (30) | LOC: EDBD 16:53 → PAVC 16:53 | PROVIDERS: ADMIT Internal Medicine; ATTEND Internal Medicine ==

== ENCOUNTER 2021-02-21 12:15 | Emergency (ER) | payer OTHER ==
[~2021-02-21] VITALS: Ht 180.3 cm; Wt 94.8 kg
[2021-02-21 12:15] VITALS: TEMP 98.1
[2021-02-21 13:04] LABS: PLATELET COUNT 142 K/uL (142-355)
[2021-02-21 13:07] LABS: POTASSIUM 3.5 mmol/L (3.6-5.2)
[2021-02-21 15:15] VITALS: BP 136/60
== END 2021-02-21 16:25 ==
LOC: EDBD 12:19 → ED 12:19
PROVIDERS: Family Medicine
DX: S00.83XA Contusion of other part of head, initial encounter (principal); N39.0 Urinary tract infection, site not specified; E11.649 Type 2 diabetes mellitus with hypoglycemia without coma; Z79.84 Long term (current) use of oral hypoglycemic drugs; I69.331 Monoplegia of upper limb following cerebral infarction affecting right dominant side; W01.190A Fall on same level from slipping, tripping and stumbling with subsequent striking against furniture, initial encounter; Y92.122 Bedroom in nursing home as the place of occurrence of the external cause
CPT/HCPCS: 36415; 80053; 81000; 82948; 85027; 87077; 87086; 87088; 87186; 96365; 96375; 99284; J0696; J7060

== ENCOUNTER 2021-03-12 09:00 | Inpatient (IN) | payer OTHER | END 2021-04-12 08:00 | disposition still patient (30) | LOC: PAVC 09:00 | PROVIDERS: ADMIT Internal Medicine; ATTEND Internal Medicine ==

== ENCOUNTER 2021-04-12 09:00 | Inpatient (IN) | payer OTHER | END 2021-05-13 11:15 | disposition home or self-care (01) | LOC: PAVC 09:00 | PROVIDERS: ADMIT Internal Medicine; ATTEND Internal Medicine ==

== ENCOUNTER 2021-04-13 07:31 | Outpatient (CLI) | payer OTHER | END 2021-04-13 22:34 | disposition home or self-care (01) | LOC: LAB 07:31 | PROVIDERS: ATTEND Internal Medicine | DX: E11.9 Type 2 diabetes mellitus without complications (principal) | CPT/HCPCS: 83036 ==

== ENCOUNTER 2021-06-08 10:34 | Outpatient (CLI) | payer OTHER ==
[2021-06-08 10:52] LABS: PLATELET COUNT 121 K/uL (142-355)
[2021-06-08 11:27] LABS: POTASSIUM 3.3 mmol/L (3.6-5.2)
== END 2021-06-08 20:02 | disposition home or self-care (01) ==
LOC: LAB 10:34
PROVIDERS: ATTEND Internal Medicine
DX: E11.65 Type 2 diabetes mellitus with hyperglycemia (principal); E78.2 Mixed hyperlipidemia; R53.83 Other fatigue; N40.0 Benign prostatic hyperplasia without lower urinary tract symptoms
CPT/HCPCS: 80053; 80061; 81000; 82607; 83036; 84153; 84436; 84443; 85027; 87077; 87086; 87088; 87186

== ENCOUNTER 2023-10-11 10:33 | Outpatient (CLI) | payer OTHER | END 2023-10-11 19:29 | disposition home or self-care (01) | LOC: US 10:33 | PROVIDERS: ATTEND Family Medicine | DX: N50.82 Scrotal pain (principal); R60.0 Localized edema ==